=== PATIENT | female | born 1975 | race African-American/Black ===

== ENCOUNTER → 2016-09-04 | Outpatient (CLI) | payer MEDICARE, OTHER ==
[2016-09-04 15:10] VITALS: BP 141/87; PULSE 91; RESP 16; TEMP 98.6; BMI 56.6
[2016-09-04 16:03] LABS: Anisocytosis Slight; CH 28.3; CHCM 30.9; HCT 37.7 % (34.0-46.0); HDW 2.54; HGB 11.4 gm/dL (11.4-16.0); Hypochromasia Slight; MCH 27.9 pg (25.0-35.0); MCHC 30.3 g/dL (31.0-37.0); Mean Platelet Volume 7.8; RDW 16.1 % (11.5-15.5); WBC 7.9 k/uL (3.8-10.6)
[2016-09-04 16:21] LABS: ALT 20 U/L (9-52); AST 15 U/L (14-36); Alkaline Phosphatase 84 U/L (38-126); Anion Gap 9 mmol/L; Blood Urea Nitrogen 11 mg/dL (7-17); Calcium 8.6 mg/dL (8.4-10.2); Carbon Dioxide 29 mmol/L (22-30); Chloride 103 mmol/L (98-107); Cholesterol 136 mg/dL (<200); Glucose 101 mg/dL (74-99); HDL Cholesterol 68 mg/dL (40-60); Iron 36 ug/dL (37-170); Magnesium 1.8 mg/dL (1.6-2.3); Non-African American GFR(MDRD) >60 (>60 ml/min/1.73 sqM); Phosphorous 3.9 mg/dL (2.5-4.5); Potassium 4.3 mmol/L (3.5-5.1); Sodium 141 mmol/L (137-145); Total Bilirubin 0.5 mg/dL (0.2-1.3); Total Protein 6.6 g/dL (6.3-8.2); Triglycerides 81 mg/dL (<150)
[2016-09-04 16:30] LABS: % Iron Saturation 9.6 % (20-50); Prealbumin 15 mg/dL (18-36); Total Iron Binding Capacity 376 ug/dL (265-497)
[2016-09-04 17:23] LABS: Vitamin B12 458 pg/mL (239-931)
[2016-09-04 18:31] LABS: Hemoglobin A1C 5.8 % (4.2-6.1)
[2016-09-07 14:26] LABS: Selenium 143 mcg/L (63-160)
--- NOTE | 2016-10-24 12:26 | P.PN ---
Progress Note - Text DATE OF SERVICE: 09/04/2016 CHIEF COMPLAINT: Bariatric assessment. HISTORY OF PRESENT ILLNESS: Zayra Alcantara is a 41-year-old female with previous history of Hal-en-Y gastric bypass performed at an outside institution in 2008. She is now almost 8 years out. She reports at that time her highest weight was 368 pounds for her 5 foot 7-1/2 frame. Her ideal body weight is 158 pounds. Today she experienced complete weight regain and now 366 pounds. She reports exposure to exogenous estrogen which has caused most of her weight gain. Body mass index is now 57.5. She is 208 pounds overweight. Separately she comes in with having overshot her initial weight up to at least 372 pounds. She has been placed on medication regarding diabetes and also reports a 6 pound weight loss as a result. She comes in complaining of bilateral knee pain including back pain. She also describes persistent right lower quadrant abdominal pain. She has concerns regarding her right thyroid gland and goiter as well. Given the severity of her abdominal pain, which is now more progressive, she is seeking for surgical solutions. PAST MEDICAL HISTORY: 1. Super morbid obesity. 2. Gastroesophageal reflux disease. 3. Fibromyalgia. 4. Cardiomyopathy. 5. Endometriosis. 6. Severe osteoarthritis bilateral knees. 7. Diabetes type 2. PAST SURGICAL HISTORY: 1. Hal-en-Y gastric bypass. 2. Bilateral carpal tunnel release. 3. Colonoscopy. 4. Tonsillectomy. 5. Adenoidectomy. 6. Heart catheterization. 7. Laparoscopic incisional ventral hernia repair from scar. 8. Laparoscopic cholecystectomy. 9. Total knee replacement. 10. Corrective surgery for right orbital fracture. 11. . MEDICATIONS: 1. Norvasc. 2. Aldactazide. 3. Opana. 4. Sinequan. 5. Tenormin. 6. Ventolin inhaler. ALLERGIES: LATEX and PENICILLIN. SOCIAL HISTORY: Still actively smokes. She also has alcohol use. FAMILY HISTORY: She had just had her son who is now 17 months old. Morbid obesity and diabetes in her family. REVIEW OF SYSTEMS: CONSTITUTIONAL: [place] body weight of 158 pounds for 5 foot 7-1/2 inch frame. Highest weight now reset at 372 pounds. She reported recent 6 pounds weight loss in the last 6 months. She is 208 pounds overweight. ENDOCRINE: She reports thyroid nodularity and potential goiter. Her diabetes type 2 is now restarted. MUSCULOSKELETAL: She reports diffuse lower back pain, including hip pain and knee pain. GASTROINTESTINAL: No reports of dumping syndrome. No diarrhea. RESPIRATORY: Has asthma with obstructive sleep apnea. Also has hypertension. HEMATOLOGIC: History of iron deficiency anemia. NEURO: Has chronic pain. No reports of stroke or seizure disorder. HEENT: Wears glasses. Denies trouble with hearing. CARDIOVASCULAR: No reports of heart attack or chest pain. RESPIRATORY: History of bronchitis. NEURO: No reports of stroke or seizure disorders. PSYCH: Has depression and anxiety. PHYSICAL EXAM: VITAL SIGNS: 98.6, 71, 16, 141/87; 5 feet 7-1/2 inches, 366 pounds. Body mass index of 57.5. ABDOMEN: Protuberant, soft, tender along the right lower quadrant. No diffuse peritonitis. No recurrent palpable incisional hernias. GENERAL: Well-developed female in no acute distress. HEENT: Wears glasses. Extraocular muscles grossly intact. Moist buccal mucosa. NECK: Adenopathy of bilateral tonsils. Tender. No thyromegaly. CHEST: Unlabored respirations. Equal bilateral excursions. CARDIOVASCULAR: Regular rate. MUSCULOSKELETAL: No clubbing, cyanosis, or edema. PSYCH: Appropriate affect. Alert and oriented to person, place, and time. LABS: White count normal at 7.9. Hemoglobin 11.4. MCHC low at 30.3. RDW elevated at 16.1. Evidence of hyperchromasia identified. Hemoglobin A1c of 5.8 down from 5.9. Iron low at 36. Percent iron saturation low 9.6. Prealbumin low at 15. HDL elevated at 16. Vitamin D low at 30. Vitamin D low at 12.8. Parathyroid hormone elevated at 94.2. ASSESSMENT: 1. Morbid obesity due to excess calories. 2. Body mass index of 57.5. 3. History of Hal-en-Y gastric bypass. 4. Weight gain following bariatric procedure. 5. Right thyroid nodularity. 6. Thyroid nodule. 7. New right lower quadrant abdominal pain. 8. History of peritoneal adhesions. 9. Iron deficiency anemia. 10. Inadequate protein intake. 11. Medical noncompliance to bariatric diet. 12. Vitamin D deficiency. 13. Vitamin A deficiency. 14. Secondary hyperparathyroidism secondary to inadequate calcium intake. PLAN: 1. Given severity of abdominal pain and known history of peritoneal adhesions, I recommend diagnostic laparoscopy with laparoscopic lysis of adhesions. 2. Deep venous thrombosis prophylaxis. 3. Antibiotic prophylaxis. 4. Vitamin D supplement 50,000 units weekly. 5. Recommend calcium intake of at least 1500 mg daily. 6. Recommend vitamin A supplement at least 8000 units daily. 7. Prealbumin reflects fairly poor protein intake whereby goal is over 75+ grams daily. 8. To help her with her weight gain I have recommended reinstitution of the bariatric dietary plan including following with bariatric dietitian in the interim. ADDENDUM: Vitamin D supplements 50,000 weekly prescribed. Additional prescription for vitamin A as well as calcium was sent to local pharmacy.
== END | disposition home or self-care (01) ==
LOC: BARWHC3 14:40
PROVIDERS: ATTEND Surgery Plastic and Reconstructive Surgery
DX: Z48.815 Encounter for surgical aftercare following surgery on the digestive system (principal); E66.01 Morbid (severe) obesity due to excess calories; E21.1 Secondary hyperparathyroidism, not elsewhere classified; E89.1 Postprocedural hypoinsulinemia; D50.8 Other iron deficiency anemias; E44.0 Moderate protein-calorie malnutrition; E55.9 Vitamin D deficiency, unspecified; K74.1 Hepatic sclerosis; N19 Unspecified kidney failure; K50.90 Crohn's disease, unspecified, without complications; Z98.84 Bariatric surgery status; Z88.0 Allergy status to penicillin; Z91.030 Bee allergy status; Z91.040 Latex allergy status
CPT/HCPCS: 84255; 84134; 84425; 80061; 80053; 82607; 82728; 83036; 82525; 82746; 83540; 83550; 83735; 84100; 84443; 84590; 84630; 85027; 85610; 85730; 82306; 83970; G0463; 99211

== ENCOUNTER 2016-09-13 09:27 | Day surgery (SDC) | payer MEDICARE, OTHER ==
[2016-09-10 15:53] VITALS: BMI 53.1
--- NOTE | 2016-09-13 07:53 | P.GSHP ---
History of Present Illness H&P Date: 09/13/16 CHIEF COMPLAINT: History of intra-abdominal adhesions HISTORY OF PRESENT ILLNESS: The patient is a 41-year-old female who presents with history of intra-abdominal adhesions from multiple prior surgeries including increasing abdominal pain. She now presents for diagnostic laparoscopy including lysis of adhesions. PAST MEDICAL HISTORY: Please see list. PAST SURGICAL HISTORY: Please see list. MEDICATIONS: Please see list. ALLERGIES: Please see list. SOCIAL HISTORY: No illicit drug use FAMILY HISTORY: No reports of Crohn disease or ulcerative colitis. REVIEW OF ORGAN SYSTEMS: CONSTITUTIONAL: No reports of fevers or chills. GI: Denies any blood in stools or constipation. PHYSICAL EXAM: VITAL SIGNS: Stable GENERAL: Well-developed pleasant and in no acute distress. HEENT: No scleral icterus. Extraocular movements grossly intact. Moist buccal mucosa. NECK: Supple without lymphadenopathy. CHEST: Unlabored respirations. Equal bilateral excursions. CARDIOVASCULAR: Regular rate and rhythm. Distal 2+ pulses. ABDOMEN: Soft, diffuse abdominal tenderness. No peritonitis. MUSCULOSKELETAL: No clubbing, cyanosis, or edema. ASSESSMENT: 1. Diffuse abdominal pain. 2. History of multiple abdominal surgeries. 3. Intra-abdominal adhesions. PLAN: 1. Diagnostic laparoscopy with lysis of adhesions were described in detail including risk of injury to the intestine, need for further surgery, and open technique. 2. DVT prophylaxis. 3. Antibiotic prophylaxis. Past Medical History Past Medical History: Asthma, Chest Pain / Angina, Diabetes Mellitus, GERD/ Reflux, Hypertension, Pneumonia, Thyroid Disorder Additional Past Medical History / Comment(s): endometriosis,migraines, hay fever , palpitations, thyroid nodules, herniated disk, double vision occassionally History of Any Multi-Drug Resistant Organisms: None Reported Past Surgical History: Adenoidectomy, Bariatric Surgery, Section, Cholecystectomy, Heart Catheterization, Joint Replacement, Orthopedic Surgery, Tonsillectomy Additional Past Surgical History / Comment(s): left knee arthroscopy , left ACL , LT TKA, gastric bypass , lymph node removed left side of neck Past Anesthesia/Blood Transfusion Reactions: Previous Problems w/ Anesthesia, Motion Sickness Additional Past Anesthesia/Blood Transfusion Reaction / Comment(s): bad headache and diff breathing in recovery, Past Psychological History: Anxiety, Depression, Panic Disorder Additional Psychological History / Comment(s): Hx of panic attacks Smoking Status: Current every day smoker Past Alcohol Use History: Occasional Additional Past Alcohol Use History / Comment(s): smokes 3 cigarettes since 2000 Past Drug Use History: Marijuana Additional Drug Use History / Comment(s): rare use of marijuana - Past Family History Father Family Medical History: Cancer Medications and Allergies Home Medications Medication Instructions Recorded Confirmed Type amLODIPine [Norvasc] 10 mg PO DAILY 02/09/14 09/10/16 History Oxymorphone HCl [Opana ER] 30 mg PO Q12HR 03/17/15 09/10/16 History Albuterol Inhaler [Ventolin Hfa 1 - 2 puff INHALATION Q6HR PRN 08/17/15 History Inhaler] Atenolol [Tenormin] 25 mg PO DAILY PRN 08/17/15 09/10/16 History Doxepin HCl [SINEquan] 50 mg PO HS 08/17/15 09/10/16 History Spironolactone-Hctz 25-25Mg 1 each PO DAILY 10/23/15 09/10/16 History [Aldactazide 25-25Mg] Progesterone,Micronized 200 mg PO HS 09/10/16 09/10/16 History [Prometrium] metFORMIN HCL [Glucophage] 1,000 mg PO BID 09/10/16 09/10/16 History Allergies Allergy/AdvReac Type Severity Reaction Status Date / Time Latex, Natural Rubber Allergy Rash/Hives Verified 09/04/16 16:56 Penicillins Allergy Anaphylaxis Verified 09/04/16 16:56 venom-honey bee Allergy Anaphylaxis Verified 09/04/16 16:56 [bee venom (honey bee)]
[~2016-09-13 09:27] MED LIST: ACETAMINOPHEN IV (For NPO) 1,000 MG in EMPTY BAG 1 BAG IVPB ONE; ACETAMINOPHEN TAB 500 MG TAB PO ONE; CLINDAMYCIN 900 MG in DEXTROSE 5% IN WATER 50 ML IVPB STA; DEXAMETHASONE SOD PHOSPHATE 10 MG/ML 1 ML VIAL IV ONE; ENOXAPARIN 40 MG/0.4 ML SYRINGE SQ ONE; LACTATED RINGERS 1,000 ML IV SCH; MIDAZOLAM 2 MG/2 ML VIAL IV PRN; ONDANSETRON 4 MG/2 ML VIAL IVP ONE; Pre Op ABX Message 1 EACH MISC MISCELLANE ONE; SCOPOLAMINE 1.5MG/72HR PATCH TRANSDERM ONE
[2016-09-13 10:12] LABS: Glucose,Whole Blood 98 mg/dL (75-99)
[2016-09-13] MEDS ORDERED: LIDOCAINE 1% 20 ML VIAL (10MG/ML) FOR IV START INTRADERMA ONE (10:13)
[2016-09-13] MEDS ORDERED: ROCURONIUM BROMIDE 10 MG/ML 10 ML VIAL IV ONE (10:23)
[2016-09-13] MEDS ORDERED: SUCCINYLCHOLINE CHLORIDE 100 MG/5 ML SYR IV ONE (10:23)
[2016-09-13] MEDS ORDERED: GLYCOPYRROLATE 0.2 MG/ML 2 ML VIAL ONE (10:23)
[2016-09-13] MEDS ORDERED: LIDOCAINE 1% INJ 10MG/ML (20 ML MDV) ONE (10:23)
[2016-09-13] MEDS ORDERED: METOPROLOL TARTRATE 5 MG/5 ML VIAL IVP ONE (10:23)
[2016-09-13] MEDS ORDERED: fentaNYL (PF) 50 MCG/ML 2 ML AMP ONE (10:23)
[2016-09-13] MEDS ORDERED: PROPOFOL 10 MG/ML 20 ML VIAL IV ONE (10:23)
[2016-09-13] MEDS ORDERED: NEOSTIGMINE 1 MG/ML 10 ML VIAL ONE (10:23)
[2016-09-13] MEDS ORDERED: HYDROmorphone (PF) 1 MG/ML ONE (10:23)
[2016-09-13] MEDS ORDERED: MIDAZOLAM 2 MG/2 ML VIAL ONE (10:23)
[2016-09-13] MEDS ORDERED: BUPIVACAIN-EPI 0.25%-1:200,000 30 ML VIAL SQ ONE (11:01)
--- NOTE | 2016-09-13 11:26 | P.OP ---
Date of Procedure: 09/13/16 Preoperative Diagnosis: Postoperative Diagnosis: Procedure(s) Performed: Implants: Indications for Procedure: Operative Findings: Description of Procedure: SURGEON: HIWOT RIDER MD MANAGER INDUSTRIAL: None. PREOPERATIVE DIAGNOSES: 1. Right lower quadrant abdominal pain. 2. History of pelvic and peritoneal adhesions. 3. Chronic pain syndrome. 4. History of gastric bypass. 5. Body mass index 53.2. 6. Morbid obesity. 7. Diabetes type 2, [id number]. POSTOPERATIVE DIAGNOSES: 1. Right lower quadrant abdominal pain. 2. History of pelvic and peritoneal adhesions. 3. Chronic pain syndrome. 4. History of gastric bypass. 5. Body mass index 53.2. 6. Morbid obesity. 7. Diabetes type 2, [id number]. 8. Large right ovarian cyst, 5 cm. 9. Free fluid with peritoneal fluid. PROCEDURES PERFORMED: 1. Diagnostic laparoscopy. 2. Laparoscopic lysis of adhesions of omentum to anterior abdominal wall ANESTHESIA: General with 30 mL 0.25% Marcaine with epinephrine. ESTIMATED BLOOD LOSS: 2 mL. SPECIMENS REMOVED: Cell cytology peritoneal fluid. COMPLICATIONS: None. OPERATIVE FINDINGS: 1. Severe omental adhesions to the abdominal wall of the pelvis. 2. No evidence of small bowel obstruction. 3. Large right ovarian cyst over 5 cm without infarction. 4. Left ovary within normal limits. INDICATIONS: The patient is a 41-year-old female who presents with chronic abdominal pain including prior history of severe intra-abdominal adhesions of the abdomen and pelvis. She also has history of gastric bypass. Given the severity of her symptoms, she elected for surgical intervention. Benefits and risks, including possibility of open technique were described at length. Informed consent was obtained. DESCRIPTION OF PROCEDURE: Patient was brought to the operating room, laid in supine position. After general induction, the abdomen was prepped and draped in standard sterile fashion. Prior to incision, a timeout protocol was confirmed with surgical team regarding patient's name including procedure to be performed. Preoperative medications including antibiotics were given. Additionally, bilateral SCDs including heparin 5000 units was administered. A 5 mm laparoscopic trocar entry performed of the left upper quadrant after anesthetizing the skin with local anesthetic. Diagnostic laparoscopy demonstrated moderate adhesions of the lower pelvis. No gross small bowel dilatation was encountered. Primarily omental Two 5-mm trochars were placed along the left lateral abdominal wall. The patient was placed in Trendelenburg position with the right side up. Greater omental dhesions along her previous mesh was identified and sharply lysed using Sonicision. Attention was brought to the right lower pelvis whereby the right ovary had a 5 cm simple cyst. The left ovary was unremarkable. The uterus was moderate in size. The bilateral groins did not demonstrate any large incarcerated hernias. A weak bilateral groin floor was confirmed. Clear fluid was found in the pelvis and irrigated as well as aspirated for cell cytology with her history of ovarian cyst. No enterotomies occurred. No evidence of bowel obstruction or small bowel dilatation was found. Final inspection of the abdomen demonstrated adequate hemostasis including no enterotomies. All instruments and pneumoperitoneum were evacuated from the abdominal cavity. A total of 30 mL 0.25% Marcaine with epinephrine was infiltrated in all wounds for postop analgesia. Dermabond was applied to the skin after reapproximating the incisions with 4-0 Monocryl as described. At the end of the procedure, needle, sponge, and instrument count was verified correct by watch technician. The patient had tolerated the procedure well, was taken to the postanesthesia care unit in stable condition. Intraoperative abdominal films were described and discussed with her family who were overall pleased with her level of care. Plan - Discharge Summary Discharge Medication List amLODIPine [Norvasc] 10 mg PO DAILY 02/09/14 [History] Oxymorphone HCl [Opana ER] 30 mg PO Q12HR 03/17/15 [History] Albuterol Inhaler [Ventolin Hfa Inhaler] 1 - 2 puff INHALATION Q6HR PRN [History] Atenolol [Tenormin] 25 mg PO DAILY PRN 08/17/15 [History] Doxepin HCl [SINEquan] 50 mg PO HS 08/17/15 [History] Spironolactone-Hctz 25-25Mg [Aldactazide 25-25Mg] 1 each PO DAILY 10/23/15 [ History] Progesterone,Micronized [Prometrium] 200 mg PO HS 09/10/16 [History] metFORMIN HCL [Glucophage] 1,000 mg PO BID 09/10/16 [History] Follow up Appointment(s)/Referral(s): Hiwot Rider MD [STAFF PHYSICIAN] - 09/26/16 (Bariatric center) Patient Instructions/Handouts: *Surgery [facility] - Scopalamine Patch Instructions, Ovarian Cyst (GEN) Activity/Diet/Wound Care/Special Instructions: May shower. No bath tub soaks. Discharge Disposition: HOME SELF-CARE
[2016-09-13 11:46] VITALS: TEMP 98
[2016-09-13] MEDS ORDERED: HYDROcodone/APAP 5-325MG 1 EACH TAB PO PRN (11:47)
[2016-09-13] MEDS ORDERED: NALOXONE 0.4 MG/ML 1 ML VIAL IV PRN (11:47)
[2016-09-13] MEDS: HYDROmorphone 1 MG/ML 1 ML SYRINGE IVP PRN ×5 (11:50→12:33)
[2016-09-13] MEDS ORDERED: diphenhydrAMINE 50 MG/ML 1 ML VIAL IVP ONE (12:02)
[2016-09-13 13:19] VITALS: RESP 18
[2016-09-13] MEDS ORDERED: oxyCODONE-APAP 5-325MG 1 EACH TAB PO STA ×2 (14:23→14:42)
[2016-09-13 14:34] VITALS: BP 134/85; PULSE 93
== END 2016-09-13 15:38 | disposition home or self-care (01) ==
LOC: OR 09:27
PROVIDERS: ATTEND Surgery Plastic and Reconstructive Surgery
DX: K66.0 Peritoneal adhesions (postprocedural) (postinfection) (principal); N83.201 Unspecified ovarian cyst, right side; Z98.84 Bariatric surgery status; J45.909 Unspecified asthma, uncomplicated; E11.9 Type 2 diabetes mellitus without complications; Z79.84 Long term (current) use of oral hypoglycemic drugs; I10 Essential (primary) hypertension; E66.9 Obesity, unspecified; Z68.43 Body mass index [BMI] 50.0-59.9, adult; F41.9 Anxiety disorder, unspecified; F32.9 Major depressive disorder, single episode, unspecified; F41.0 Panic disorder [episodic paroxysmal anxiety]; F17.210 Nicotine dependence, cigarettes, uncomplicated; Z79.891 Long term (current) use of opiate analgesic; Z79.899 Other long term (current) drug therapy; Z88.0 Allergy status to penicillin; Z91.030 Bee allergy status; Z91.040 Latex allergy status
CPT/HCPCS: 93005; 81025; 88108; 88305; 49329; J2250; J1200; J1100; J2710; J2405; J2001; J1650; J3010; J1170; J0131; J0330; J2704

== ENCOUNTER → 2016-09-26 | Outpatient (CLI) | payer MEDICARE, OTHER ==
--- NOTE | 2016-09-26 16:00 | US ---
EXAMINATION TYPE: US pelvis complete transvag DATE OF EXAM: 09/26/2016 COMPARISON: CT 2016 CLINICAL HISTORY: Prev Rt Ovarian Cyst, and Pain R10.2 N83.20. rt ovarian cyst, persisting pelvic kaila n TECHNIQUE: Transvaginal (TV) and Transabdominal (TA) EXAM MEASUREMENTS: Uterus: 13.1 x 5.8 x 6.5 cm Endometrial Stripe: 1.0 cm Right Ovary: 5.3 x 4.2 x 5.8 cm Left Ovary: 2.6 x 1.8 x 2.8 cm 1. Uterus: Anteverted bulky uterine body, larger in size 2. Endometrium: wnl 3. Right Ovary: seen with a 4.0 x 3.7 x 3.6cm simple cyst; good color flow seen within the ovarian t issue, no u/s evidence of torsion 4. Left Ovary: wnl 5. Bilateral Adnexa: wnl 6. Posterior cul-de-sac: no free fluid seen Results called to Dr Kumar at the time of the exam. IMPRESSION: 1. Bulky uterus without discrete mass. 2 simple cyst right ovary. Normal blood flow.
== END | disposition home or self-care (01) ==
LOC: RADUSWWP 15:11
PROVIDERS: ATTEND Obstetrics & Gynecology
DX: N83.201 Unspecified ovarian cyst, right side (principal); R10.2 Pelvic and perineal pain
CPT/HCPCS: 76830; 76856; 93976

== ENCOUNTER → 2016-09-26 | Outpatient (CLI) | payer MEDICARE, OTHER ==
[2016-09-26 12:13] VITALS: BP 131/89; PULSE 92; RESP 14; TEMP 98.7; BMI 55.6
--- NOTE | 2016-10-26 19:41 | P.PN ---
Progress Note - Text DATE OF SERVICE: 09/26/2016 CHIEF COMPLAINT: History of chronic abdominal pain HISTORY OF PRESENT ILLNESS: Zayra Alcantara is a 41-year-old female with previous history of Hal-en-Y gastric bypass performed at an outside institution in 2008. She is now almost 8 years out. She reported pelvic pain particularly of the right lower abdomen. She underwent laparoscopic lysis of adhesions with findings of a large right ovarian cyst of 5 cm. Now she presents for further evaluation and management. She reports chronic pain all over from fibromyalgia. Her highest weight is 372 pounds for her 5 foot 7-/2 frame. Her ideal body weight is 158 pounds. Today she is 365 pounds. She has lost 1 pounds in 3 weeks. Body mass index is down from 57.5 to 56.5. She is 207 pounds overweight. PHYSICAL EXAM: VITAL SIGNS: 5 feet 7-1/2 inches, 365 pounds. Body mass index of 56.5. Vital Signs Temp 98.7 F 09/26/16 12:09 Pulse 92 09/26/16 12:09 Resp 14 09/26/16 12:09 BP 131/89 09/26/16 12:09 Pulse Ox ABDOMEN: Protuberant, soft. No diffuse peritonitis. No recurrent palpable incisional hernias. GENERAL: Well-developed female in no acute distress. HEENT: Wears glasses. Extraocular muscles grossly intact. Moist buccal mucosa. NECK: Has thyromegaly. No lymphadenopathy. CHEST: Unlabored respirations. Equal bilateral excursions. CARDIOVASCULAR: Regular rate. MUSCULOSKELETAL: No clubbing, cyanosis, or edema. NEURO: No focal or lateral and signs. Cranial nerves 2-12 grossly within normal limits. PSYCH: Appropriate affect. Alert and oriented to person, place, and time. ASSESSMENT: 1. Morbid obesity due to excess calories. 2. Body mass index of 57.5 to 56.5 3. History of Hal-en-Y gastric bypass. 4. History of peritoneal adhesions. 5. Iron deficiency anemia. 6. Inadequate protein intake. 7. Medical noncompliance to bariatric diet. 8. Vitamin D deficiency. 9. Vitamin A deficiency. 10. Secondary hyperparathyroidism secondary to inadequate calcium intake. 11. Symptomatic right ovarian cyst. PLAN: 1. Recommend follow-up with her circular tank cooper as she reports moderate symptomatology from a right ovarian cyst. 2. Recommend correction of nutritional deficiencies including vitamin D deficiency and inadequate protein intake. 3. Her other concerns includes her thyroid which would benefit from repeat imaging.
== END | disposition home or self-care (01) ==
LOC: BARWHC3 11:23
PROVIDERS: ATTEND Surgery Plastic and Reconstructive Surgery
DX: E66.01 Morbid (severe) obesity due to excess calories (principal); D50.9 Iron deficiency anemia, unspecified; E46 Unspecified protein-calorie malnutrition; E55.9 Vitamin D deficiency, unspecified; E50.9 Vitamin A deficiency, unspecified; N83.201 Unspecified ovarian cyst, right side; E21.1 Secondary hyperparathyroidism, not elsewhere classified; Z68.43 Body mass index [BMI] 50.0-59.9, adult; Z98.84 Bariatric surgery status; Z87.19 Personal history of other diseases of the digestive system; Z91.11 Patient's noncompliance with dietary regimen
CPT/HCPCS: 93976; 76856; 76830; G0463; 99211

== ENCOUNTER 2016-09-30 09:15 | Day surgery (SDC) | payer MEDICARE, OTHER ==
[2016-09-27 12:13] VITALS: BMI 55.6
--- NOTE | 2016-09-30 07:49 | P.GSHP ---
History of Present Illness H&P Date: 09/30/16 CHIEF COMPLAINT: GERD HISTORY OF PRESENT ILLNESS: The patient is a 41-year-old male who presents reports gastroesophageal reflux disease. Upper endoscopy was offered for further evaluation and management. PAST MEDICAL HISTORY: Please see list. PAST SURGICAL HISTORY: Please see list. MEDICATIONS: Please see list. ALLERGIES: Please see list. SOCIAL HISTORY: No illicit drug use FAMILY HISTORY: No reports of Crohn disease or ulcerative colitis. REVIEW OF ORGAN SYSTEMS: CONSTITUTIONAL: No reports of fevers or chills. GI: Denies any blood in stools or constipation. PHYSICAL EXAM: VITAL SIGNS: Stable GENERAL: Well-developed and pleasant in no acute distress. HEENT: No scleral icterus. Extraocular movements grossly intact. Moist buccal mucosa. NECK: Supple without lymphadenopathy. CHEST: Unlabored respirations. Equal bilateral excursions. CARDIOVASCULAR: Regular rate and rhythm. Distal 2+ pulses. ABDOMEN: Soft, nondistended. MUSCULOSKELETAL: No clubbing, cyanosis, or edema. ASSESSMENT: 1. Gastroesophageal reflux disease PLAN: 1. Recommend proceeding with an upper endoscopy Past Medical History Past Medical History: Asthma, Chest Pain / Angina, Diabetes Mellitus, Fibromyalgia, GERD/Reflux, Hypertension, Pneumonia, Thyroid Disorder Additional Past Medical History / Comment(s): endometriosis,migraines, hay fever , palpitations, thyroid nodules, herniated disk, double vision occassionally. CYST ON OVARY. STATES TAKES TENORMIN FOR OCCASIONAL HEART PALPITATIONS History of Any Multi-Drug Resistant Organisms: None Reported Past Surgical History: Adenoidectomy, Bariatric Surgery, Section, Cholecystectomy, Heart Catheterization, Joint Replacement, Orthopedic Surgery, Tonsillectomy Additional Past Surgical History / Comment(s): left knee arthroscopy , left ACL , LT TKA, gastric bypass, lymph node removed left side of neck. LAPAROTOMY FOR ENDOMETRIOSIS Past Anesthesia/Blood Transfusion Reactions: Previous Problems w/ Anesthesia, Motion Sickness Additional Past Anesthesia/Blood Transfusion Reaction / Comment(s): bad headache and diff breathing in recovery, MUSCLE PAIN POST OP Past Psychological History: Anxiety, Depression, Panic Disorder Additional Psychological History / Comment(s): Hx of panic attacks Smoking Status: Current every day smoker Past Alcohol Use History: Occasional Additional Past Alcohol Use History / Comment(s): smokes 3 cigarettes since 2000 , Past Drug Use History: Marijuana Additional Drug Use History / Comment(s): rare use of marijuana EDIBLE, INSTRUCTED TO HOLD 24 HR PRIOR TO PROCEDURE - Past Family History Father Family Medical History: Cancer Medications and Allergies Home Medications Medication Instructions Recorded Confirmed Type amLODIPine [Norvasc] 10 mg PO DAILY 02/09/14 09/27/16 History Oxymorphone HCl [Opana ER] 30 mg PO Q12HR 03/17/15 09/27/16 History Albuterol Inhaler [Ventolin Hfa 1 - 2 puff INHALATION Q6HR PRN 08/17/15 History Inhaler] Atenolol [Tenormin] 25 mg PO DAILY PRN 08/17/15 09/27/16 History Doxepin HCl [SINEquan] 50 mg PO HS 08/17/15 09/27/16 History Spironolactone-Hctz 25-25Mg 1 each PO DAILY 10/23/15 09/27/16 History [Aldactazide 25-25Mg] Progesterone,Micronized 200 mg PO HS 09/10/16 09/27/16 History [Prometrium] Exenatide Microspheres [Bydureon 2 mg SQ TH 09/27/16 09/27/16 History Pen] Allergies Allergy/AdvReac Type Severity Reaction Status Date / Time Latex, Natural Rubber Allergy Rash/Hives Verified 09/27/16 12:04 Penicillins Allergy Anaphylaxis Verified 09/27/16 12:04 venom-honey bee Allergy Anaphylaxis Verified 09/27/16 12:04 [bee venom (honey bee)]
[~2016-09-30 09:15] MED LIST changes: -ACETAMINOPHEN IV (For NPO) 1,000 MG in EMPTY BAG 1 BAG IVPB ONE; -ACETAMINOPHEN TAB 500 MG TAB PO ONE; -CLINDAMYCIN 900 MG in DEXTROSE 5% IN WATER 50 ML IVPB STA; -DEXAMETHASONE SOD PHOSPHATE 10 MG/ML 1 ML VIAL IV ONE; -ENOXAPARIN 40 MG/0.4 ML SYRINGE SQ ONE; +LIDOCAINE 1% 20 ML VIAL (10MG/ML) FOR IV START INTRADERMA PRN; -MIDAZOLAM 2 MG/2 ML VIAL IV PRN; -ONDANSETRON 4 MG/2 ML VIAL IVP ONE; -Pre Op ABX Message 1 EACH MISC MISCELLANE ONE; -SCOPOLAMINE 1.5MG/72HR PATCH TRANSDERM ONE
[2016-09-30 09:33] VITALS: RESP 16; TEMP 97.6
[2016-09-30 09:33] LABS: Glucose,Whole Blood 93 mg/dL (75-99)
[2016-09-30] MEDS ORDERED: PROPOFOL 10 MG/ML 20 ML VIAL IV ONE (09:54)
[2016-09-30] MEDS ORDERED: LIDOCAINE 1% INJ 10MG/ML (20 ML MDV) ONE (09:54)
--- NOTE | 2016-09-30 10:24 | P.PCN ---
Date of Procedure: 09/30/16 Preoperative Diagnosis: Postoperative Diagnosis: Procedure(s) Performed: Implants: Indications for Procedure: Operative Findings: Description of Procedure: PREOPERATIVE DIAGNOSIS: Dysphagia. s/p Hal-en-y gastric bypass. Nausea with vomiting. Morbid obesity. Diabetes type 2. POSTOPERATIVE DIAGNOSIS: Dysphagia. s/p Hal-en-y gastric bypass. Nausea with vomiting. Morbid obesity. Diabetes type 2. 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 OPERATION: Esophagogastrojejunoscopy with balloon dilatation from 15 to 20 mm. SURGEON: Hiwot Rider MD ANESTHESIA: MAC. INDICATIONS: The patient is a 41-year-old female who presents with a history of dysphagia, gastric bypass including nausea and vomiting. Benefits and risks of the procedure were described. Informed consent was obtained. DESCRIPTION: The patient was brought into the endoscopy suite and laid in the left lateral decubitus position. After a timeout was confirmed, the procedure was initiated. An Olympus gastroscope was passed along the posterior oropharynx down to the distal esophagus where the squamocolumnar junction was unremarkable. The gastric pouch was entered. A gastrojejunal stricture of 15 mm was found as the adult gastroscope was 9.5 mm in size. A [employer] balloon dilator was placed through the scope. Final insufflation up to 20 mm was performed with a total of 2 minutes. The scope was advanced up to 60 cm from the incisors into the Hal limb. The mucosa of the gastrojejunal anastomosis was intact. No gastrojejunal marginal ulcer was encountered. No full-thickness injury was encountered. The GI tract was desufflated. The patient tolerated the procedure well. FINDINGS: Squamocolumnar junction unremarkable at 40 cm. Stricture of approximately 15 mm encountered. No acute or chronic gastrojejunal ulceration encountered. Successful balloon dilatation to 20 mm. Anastomosis at 48 cm from the incisors. Gastric pouch 8 cm. RECOMMENDATIONS: Upper endoscopy as needed. Plan - Discharge Summary New Discharge Prescriptions: No Action amLODIPine [Norvasc] 10 mg PO DAILY Oxymorphone HCl [Opana ER] 30 mg PO Q12HR Albuterol Inhaler [Ventolin Hfa Inhaler] 1 - 2 puff INHALATION Q6HR PRN PRN Reason: asthma Doxepin HCl [SINEquan] 50 mg PO HS Atenolol [Tenormin] 25 mg PO DAILY PRN PRN Reason: Dyspnea Spironolactone-Hctz 25-25Mg [Aldactazide 25-25Mg] 1 each PO DAILY Progesterone,Micronized [Prometrium] 200 mg PO HS Exenatide Microspheres [Bydureon Pen] 2 mg SQ TH Exenatide Microspheres [Bydureon] 2 mg SQ Q7DAYS Discharge Medication List amLODIPine [Norvasc] 10 mg PO DAILY 02/09/14 [History] Oxymorphone HCl [Opana ER] 30 mg PO Q12HR 03/17/15 [History] Albuterol Inhaler [Ventolin Hfa Inhaler] 1 - 2 puff INHALATION Q6HR PRN [History] Atenolol [Tenormin] 25 mg PO DAILY PRN 08/17/15 [History] Doxepin HCl [SINEquan] 50 mg PO HS 08/17/15 [History] Spironolactone-Hctz 25-25Mg [Aldactazide 25-25Mg] 1 each PO DAILY 10/23/15 [ History] Progesterone,Micronized [Prometrium] 200 mg PO HS 09/10/16 [History] Exenatide Microspheres [Bydureon Pen] 2 mg SQ TH 09/27/16 [History] Exenatide Microspheres [Bydureon] 2 mg SQ Q7DAYS 09/30/16 [History] Follow up Appointment(s)/Referral(s): Hiwot Rider MD [STAFF PHYSICIAN] - 1 Week Patient Instructions/Handouts: Esophageal Dilation (DC) Activity/Diet/Wound Care/Special Instructions: Liquid diet today. Regular food tomorrow. Discharge Disposition: HOME SELF-CARE
[2016-09-30 10:31] VITALS: BP 140/89; PULSE 92
== END 2016-09-30 10:46 | disposition home or self-care (01) ==
LOC: ORWHC2ENDO 09:15
PROVIDERS: ATTEND Surgery Plastic and Reconstructive Surgery
DX: K31.89 Other diseases of stomach and duodenum (principal); Z98.84 Bariatric surgery status; E66.01 Morbid (severe) obesity due to excess calories; E11.9 Type 2 diabetes mellitus without complications; K21.9 Gastro-esophageal reflux disease without esophagitis; M79.7 Fibromyalgia; I10 Essential (primary) hypertension; E07.9 Disorder of thyroid, unspecified; F41.9 Anxiety disorder, unspecified; F32.9 Major depressive disorder, single episode, unspecified; F41.0 Panic disorder [episodic paroxysmal anxiety]; J44.9 Chronic obstructive pulmonary disease, unspecified; F17.210 Nicotine dependence, cigarettes, uncomplicated; Z79.891 Long term (current) use of opiate analgesic; Z79.899 Other long term (current) drug therapy; Z88.0 Allergy status to penicillin; Z91.030 Bee allergy status; Z91.040 Latex allergy status
CPT/HCPCS: 81025; 43249; J2001; J2704; C1726

== ENCOUNTER → 2016-11-08 | Outpatient (CLI) | payer MEDICARE, OTHER ==
--- NOTE | 2016-11-08 11:05 | US ---
EXAMINATION TYPE: US thyroid st tissue head/neck DATE OF EXAM: 11/08/2016 COMPARISON: 11/03/2015 CLINICAL HISTORY: 41-year-old female R22.0 swelling mass. History of thyroid nodule, dysphagia . TECHNIQUE: Multiple sonographic images of the thyroid gland are obtained. FINDINGS: GLAND SIZE: Right Lobe: 5.0 x 2.1 x 2.4 cm Overall Parenchyma: heterogenous Left Lobe: 4.5 x 1.4 x 2.0 cm Overall Parenchyma: homogeneous Isthmus Thickness: 0.2 cm NODULES RIGHT: # of nodules measured on right: 1 1. 2.6 X 1.8 x 2.1 cm heterogeneous solid nodule at the mid/lower pole with well-defined margins; s mall internal cystic components are present. . This nodule is wider than tall and shows intranodular vascularity. Prior size: 2.5 x 1.7 x 2.2cm, not significantly changed. LEFT: # of nodules measured on left: 0 ISTHMUS: # of nodules measured in the isthmus: 0 Bilateral neck scanned, multiple lymph nodes left neck with largest measuring 1.1 cm short axis. IMPRESSION: 1. Essentially stable large 2.6 cm solid nodule in the right lobe. 2. Prominent lymph nodes along the left side of the neck measuring up to 1.1 cm. These may be reactiv e/post inflammatory and can be followed clinically. If there is progressive enlargement, the area can be reimaged and tissue sampling can be considered.
--- NOTE | 2016-11-08 11:45 | FL ---
EXAMINATION TYPE: FL UGI air w esophagus DATE OF EXAM: 11/08/2016 COMPARISON: NONE HISTORY: Dysphasia TECHNIQUE: A single contrast UGI study is performed. FINDINGS: Hand Sizer image of the abdomen shows no gross abnormality. The esophagus shows normal motility and emptying into the stomach. No evidence of hiatal hernia or s tricture noted. Postsurgical change compatible with Hal-en-Y noted. Pleura review demonstrates surgical clips and no nspecific gas pattern. There is no evidence of gastroesophageal reflux. Delayed imaging demonstrates no evidence to suggest obstruction. The duodenal bulb, sweep, and proximal small bowel loops are unremarkable. Imaging machine malfunctio n. Reduce the number of spot images obtained. IMPRESSION: 1. Postsurgical change with no acute process.
== END | disposition home or self-care (01) ==
LOC: RADUSWWP 08:27
PROVIDERS: ATTEND Surgery Plastic and Reconstructive Surgery
DX: E04.1 Nontoxic single thyroid nodule (principal); R13.10 Dysphagia, unspecified; R59.0 Localized enlarged lymph nodes
CPT/HCPCS: 74246; 76536

== ENCOUNTER → 2017-01-06 | Outpatient (CLI) | payer MEDICARE, OTHER ==
[2017-01-06 17:54] LABS: Anisocytosis Slight; Basophils # (A) 0.1 k/uL (0-0.2); Basophils % (A) 1 %; CH 28.6; CHCM 32.2; Eosinophils # (A) 0.3 k/uL (0-0.7); Eosinophils % (A) 3 %; HCT 37.6 % (34.0-46.0); HDW 2.69; HGB 11.9 gm/dL (11.4-16.0); Luc # (Auto) 0.17; Luc % (Auto) 2; Lymphocytes # (A) 2.3 k/uL (1.0-4.8); Lymphocytes % (A) 27 %; MCH 28.4 pg (25.0-35.0); MCHC 31.7 g/dL (31.0-37.0); MCV 89.6 fL (80.0-100.0); Mean Platelet Volume 8.1; Monocytes # (A) 0.3 k/uL (0-1.0); Monocytes % (A) 4 %; Neutrophils # (A) 5.5 k/uL (1.3-7.7); Neutrophils % (A) 63 %; RDW 16.7 % (11.5-15.5); WBC 8.6 k/uL (3.8-10.6); WBC (Perox) 8.71
[2017-01-06 17:57] LABS: Ionized Calcium 4.7 mg/dL (4.5-5.3)
[2017-01-06 18:00] LABS: Appearance,Urine Clear (Clear); Bacteria,Urine Rare /hpf; Bilirubin,Urine Negative (Negative); Glucose,Urine (UA) Negative (Negative); Ketones,Urine Negative (Negative); Leukocyte Esterase,Urine Negative (Negative); Mucus,Urine Occasional /hpf; Nitrite,Urine Negative (Negative); Particle Count 4450; Protein,Urine Trace (Negative); RBC,Urine <1 /hpf (0-5); Specific Gravity,Urine 1.024 (1.001-1.035); Squamous Epithelial Cell,Urine 1 /hpf (0-4); UA Billing (MACRO vs. MICRO) MICRO; WBC,Urine 1 /hpf (0-5)
[2017-01-06 18:07] LABS: ALT 27 U/L (9-52); AST 18 U/L (14-36); Alkaline Phosphatase 119 U/L (38-126); Anion Gap 10 mmol/L; Blood Urea Nitrogen 10 mg/dL (7-17); C Reactive Protein 10.4 mg/L (<10.0); Calcium 8.5 mg/dL (8.4-10.2); Carbon Dioxide 26 mmol/L (22-30); Chloride 103 mmol/L (98-107); Glucose 93 mg/dL (74-99); Non-African American GFR(MDRD) >60 (>60 ml/min/1.73 sqM); Potassium 3.9 mmol/L (3.5-5.1); Rheumatoid Factor, Qnt <9 IU/mL (<12); Sodium 139 mmol/L (137-145); Total Bilirubin 0.5 mg/dL (0.2-1.3); Total Protein 7.1 g/dL (6.3-8.2)
[2017-01-06 19:20] LABS: Erythrocyte Sedimentation Rate 28 mm/hr (0-20)
[2017-01-07 18:42] LABS: Urine Creatinine 258.4 mg/dL
[2017-01-08 18:48] LABS: ANA w/Reflex to Titer NEGATIVE (NEGATIVE); Cyclic Citrull Pep IgG Unit <0.5 U/mL; Cyclic Citrullinated Pep IgG NEGATIVE (NEGATIVE)
== END | disposition home or self-care (01) ==
LOC: LABWHC1 17:14
PROVIDERS: ATTEND Internal Medicine
DX: M79.7 Fibromyalgia (principal); E11.9 Type 2 diabetes mellitus without complications; I10 Essential (primary) hypertension; E55.9 Vitamin D deficiency, unspecified; E21.3 Hyperparathyroidism, unspecified
CPT/HCPCS: 36415; 80053; 81001; 82043; 82306; 82330; 82570; 83970; 85025; 85652; 86038; 86140; 86200; 86431

== ENCOUNTER → 2017-06-16 | Outpatient (CLI) | payer MEDICARE, OTHER | END | disposition home or self-care (01) | LOC: PTMAIN 16:02 | PROVIDERS: ATTEND Otolaryngology | DX: K21.9 Gastro-esophageal reflux disease without esophagitis (principal) | CPT/HCPCS: 31579 ==

== ENCOUNTER → 2017-06-18 | Outpatient (CLI) | payer MEDICARE, OTHER ==
[2017-06-18 16:14] VITALS: BP 137/71; PULSE 91; RESP 16; TEMP 98.5; BMI 58.3
--- NOTE | 2017-08-21 14:37 | P.PN ---
Subjective Progress Note Date: 06/18/17 DATE OF SERVICE: 06/18/2017 CHIEF COMPLAINT: Follow gastric bypass HISTORY OF PRESENT ILLNESS: Zayra Alcantara is a 42-year-old female with previous history of Hal-en-Y gastric bypass performed at an outside institution in 2008. Prior to her surgery 9 years ago, she had weighed 368 pounds for her 5 foot 7-1/2 frame. Her ideal body weight is 158 pounds. Her body mass index was 56.8. Today she weighs 377 pounds. She has regained over 100+ pounds since her weight loss. Separately, she has gained 12 pounds in the last 8 months. She reports chronic troubles with swallowing. She is also concerned about thyroid nodule. She had completed a full course urinalysis demonstrating foamcore nodules from gas esophageal reflux disease. She had completed a manometry also confirming troubles with swallowing. She has developed severe osteoarthritis of the lower back where she is exposed to steroids since her weight gain. 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 She complains of intermittent epigastric abdominal pain as well. PAST MEDICAL HISTORY: 1. Super morbid obesity, BMI 58.3. 2. Gastroesophageal reflux disease. 3. Fibromyalgia. 4. Cardiomyopathy. 5. Endometriosis. 6. Severe osteoarthritis bilateral knees. 7. Diabetes type 2. 8. Thyroid nodule 9. Dysphagia 10. Asthma PAST SURGICAL HISTORY: 1. Hal-en-Y gastric bypass. 2. Bilateral carpal tunnel release. 3. Colonoscopy. 4. Tonsillectomy. 5. Adenoidectomy. 6. Heart catheterization. 7. Laparoscopic incisional ventral hernia repair from scar. 8. Laparoscopic cholecystectomy. 9. Total knee replacement. 10. Corrective surgery for right orbital fracture. 11. . 12. Upper endoscopy MEDICATIONS: 1. Norvasc. 2. Aldactazide. 3. Opana. 4. Sinequan. 5. Tenormin. 6. Ventolin inhaler. ALLERGIES: LATEX and PENICILLIN. SOCIAL HISTORY: Still actively smokes. She also has alcohol use. FAMILY HISTORY: She had just had her son who is now 17 months old. Morbid obesity and diabetes in her family. REVIEW OF SYSTEMS: CONSTITUTIONAL: [place] body weight of 158 pounds for 5 foot 7-1/2 inch frame. Prior to her surgery 9 years ago, she had weighed 368 pounds for her 5 foot 7-1/2 frame. Her ideal body weight is 158 pounds. Her body mass index was 56.8. Today she weighs 377 pounds. She has regained over 100+ pounds since her weight loss. Separately, she has gained 12 pounds in the last 8 months. She is 214 pounds overweight. ENDOCRINE: She reports thyroid nodularity and potential goiter. Her diabetes type 2 is now restarted. MUSCULOSKELETAL: She reports diffuse lower back pain, including hip pain and knee pain. GASTROINTESTINAL: No reports of dumping syndrome. No diarrhea. RESPIRATORY: Has asthma with obstructive sleep apnea. Also has hypertension. HEMATOLOGIC: History of iron deficiency anemia. NEURO: Has chronic pain. No reports of stroke or seizure disorder. HEENT: Wears glasses. Denies trouble with hearing. CARDIOVASCULAR: No reports of heart attack or chest pain. RESPIRATORY: History of bronchitis. NEURO: No reports of stroke or seizure disorders. PSYCH: Has depression and anxiety. Has fibromyalgia. PHYSICAL EXAM: VITAL SIGNS: 5 feet 7-1/2 inches, 377 pounds. Body mass index of 58.3. Vital Signs Temp 98.5 F 06/18/17 17:03 Pulse 91 06/18/17 17:03 Resp 16 06/18/17 17:03 BP 137/71 06/18/17 17:03 Pulse Ox ABDOMEN: Protuberant, soft, tender along the epigastrium. No recurrent palpable incisional hernias. GENERAL: Well-developed female in no acute distress. HEENT: Wears glasses. Extraocular muscles grossly intact. Moist buccal mucosa. NECK: Discrete right thyroid nodule. No lymphadenopathy. CHEST: Unlabored respirations. Equal bilateral excursions. CARDIOVASCULAR: Regular rate. Regular rhythm. 2+ radial pulses. MUSCULOSKELETAL: No clubbing, cyanosis, or edema. PSYCH: Appropriate affect. Alert and oriented to person, place, and time. NEURO: No focal or lateralizing signs. Cranial nerves II-12 grossly intact. SKIN: Well perfused. Good skin turgor. STUDIES: Video analysis of the vocal cords demonstrate nodules Manometry demonstrated upper esophageal hypertensive sphincter EGD: Demonstrates large sliding hiatal hernia including complications of gastric pouch ASSESSMENT: 1. Morbid obesity due to excess calories. 2. Body mass index of 58.3. 3. History of Hal-en-Y gastric bypass. 4. Weight gain following bariatric procedure. 5. Right thyroid nodule. 6. Dysphagia. 7. Hiatal hernia 8. Epigastric abdominal pain 9. Iron deficiency anemia. 10. Complications from bariatric procedure PLAN: 1. Recommend upper endoscopy with rigid dilator. 2. Results were manometry also confirming upper esophageal sphincter abnormality. 3. She has a symptomatic diaphragmatic hiatal hernia. Recommend repair. 4. She has a symptomatic thyroid nodule. May benefit from thyroidectomy. 5. Also recommend evaluation with bariatric dietitian for bariatric diet. 6. Recurrent bariatric metabolic panel. Objective - Vital Signs Vital signs: Vital Signs Temp 98.5 F 06/18/17 16:08 Pulse 91 06/18/17 16:08 Resp 16 06/18/17 16:08 BP 137/71 06/18/17 16:08 Pulse Ox Intake & Output 06/17/17 06/18/17 06/18/17 18:59 06:59 18:59 Weight 171.458 kg
== END | disposition home or self-care (01) ==
LOC: BARWHC3 15:19
PROVIDERS: ATTEND Surgery Plastic and Reconstructive Surgery
DX: Z09 Encounter for follow-up examination after completed treatment for conditions other than malignant neoplasm (principal); E66.01 Morbid (severe) obesity due to excess calories; E04.1 Nontoxic single thyroid nodule; R13.10 Dysphagia, unspecified; K44.9 Diaphragmatic hernia without obstruction or gangrene; R10.13 Epigastric pain; F50.9 Eating disorder, unspecified; F17.200 Nicotine dependence, unspecified, uncomplicated; K95.89 Other complications of other bariatric procedure; Z88.0 Allergy status to penicillin; Z91.040 Latex allergy status; Z79.899 Other long term (current) drug therapy; Z98.84 Bariatric surgery status
CPT/HCPCS: 99211

== ENCOUNTER 2017-07-16 08:11 | Day surgery (SDC) | payer MEDICARE, OTHER ==
[~2017-07-16 08:11] MED LIST changes: -LIDOCAINE 1% 20 ML VIAL (10MG/ML) FOR IV START INTRADERMA PRN
[2017-07-16 08:26] VITALS: TEMP 98
[2017-07-16] MEDS ORDERED: LACTATED RINGERS 1,000 ML IV ONE (08:27)
[2017-07-16] MEDS ORDERED: LIDOCAINE 1% 20 ML VIAL (10MG/ML) FOR IV START INTRADERMA ONE (08:28)
[2017-07-16 08:40] LABS: Glucose,Whole Blood 88 mg/dL (75-99)
--- NOTE | 2017-07-16 08:54 | P.GSHP ---
History of Present Illness H&P Date: 07/16/17 CHIEF COMPLAINT: Esophageal stricture HISTORY OF PRESENT ILLNESS: The patient is a 42-year-old female who presents reports dysphagia. Upper endoscopy was offered for further evaluation and management. PAST MEDICAL HISTORY: Please see list. PAST SURGICAL HISTORY: Please see list. MEDICATIONS: Please see list. ALLERGIES: Please see list. SOCIAL HISTORY: No illicit drug use FAMILY HISTORY: No reports of Crohn disease or ulcerative colitis. REVIEW OF ORGAN SYSTEMS: CONSTITUTIONAL: No reports of fevers or chills. GI: Denies any blood in stools or constipation. PHYSICAL EXAM: VITAL SIGNS: Stable GENERAL: Well-developed and pleasant in no acute distress. HEENT: No scleral icterus. Extraocular movements grossly intact. Moist buccal mucosa. NECK: Supple without lymphadenopathy. CHEST: Unlabored respirations. Equal bilateral excursions. CARDIOVASCULAR: Regular rate and rhythm. Distal 2+ pulses. ABDOMEN: Soft, nondistended. MUSCULOSKELETAL: No clubbing, cyanosis, or edema. ASSESSMENT: 1. Esophageal stricture PLAN: 1. Recommend proceeding with an upper endoscopy with rigid dilators. Past Medical History Past Medical History: Asthma, Chest Pain / Angina, Diabetes Mellitus, GERD/ Reflux, Hypertension, Pneumonia, Thyroid Disorder Additional Past Medical History / Comment(s): DIFFICULT SWALLOWING. Endometriosis,migraines, hay fever, palpitations, thyroid nodules, herniated disk, double vision occassionally History of Any Multi-Drug Resistant Organisms: None Reported Past Surgical History: Adenoidectomy, Bariatric Surgery, Section, Cholecystectomy, Heart Catheterization, Joint Replacement, Orthopedic Surgery, Tonsillectomy Additional Past Surgical History / Comment(s): left knee arthroscopy , left ACL , LT TKA, gastric bypass , lymph node removed left side of neck Past Anesthesia/Blood Transfusion Reactions: Previous Problems w/ Anesthesia, Motion Sickness Additional Past Anesthesia/Blood Transfusion Reaction / Comment(s): bad headache and diff breathing in recovery, Past Psychological History: Anxiety, Depression, Panic Disorder Additional Psychological History / Comment(s): Hx of panic attacks Smoking Status: Current every day smoker Past Alcohol Use History: Occasional Additional Past Alcohol Use History / Comment(s): smokes 2 cigarettes per day since 2000 Past Drug Use History: Marijuana Additional Drug Use History / Comment(s): rare use of marijuana - Past Family History Father Family Medical History: Cancer Medications and Allergies Home Medications Medication Instructions Recorded Confirmed Type amLODIPine [Norvasc] 10 mg PO QAM 02/09/14 07/14/17 History Oxymorphone HCl [Opana ER] 30 mg PO Q12HR 03/17/15 07/14/17 History Albuterol Inhaler [Ventolin Hfa 1 - 2 puff INHALATION Q6HR PRN 08/17/15 History Inhaler] Atenolol [Tenormin] 25 mg PO QAM 08/17/15 07/14/17 History Doxepin HCl [SINEquan] 50 mg PO HS 08/17/15 07/14/17 History Spironolactone-Hctz 25-25Mg 1 each PO QAM PRN 10/23/15 07/14/17 History [Aldactazide 25-25Mg] Dulaglutide [Trulicity] 1 dose SQ TH 07/14/17 07/14/17 History Multivitamins, Thera [Multivitamin 1 tab PO DAILY 07/14/17 07/14/17 History (formulary)] Allergies Allergy/AdvReac Type Severity Reaction Status Date / Time Latex, Natural Rubber Allergy Rash/Hives Verified 07/14/17 11:19 Penicillins Allergy Anaphylaxis Verified 07/14/17 11:19 venom-honey bee Allergy Anaphylaxis Verified 07/14/17 11:19 [bee venom (honey bee)] Surgical - Exam Vital Signs Temp Pulse Resp BP Pulse Ox 98.0 F 87 18 125/87 98 07/16/17 08:25 07/16/17 08:25 07/16/17 08:25 07/16/17 08:25 07/16/17 08:25
[2017-07-16] MEDS ORDERED: LIDOCAINE 1% INJ 10MG/ML (20 ML MDV) ONE (08:56)
[2017-07-16] MEDS ORDERED: PROPOFOL 10 MG/ML 20 ML VIAL IV ONE (08:56)
--- NOTE | 2017-07-16 09:17 | P.PCN ---
Date of Procedure: 07/16/17 Description of Procedure: PREOPERATIVE DIAGNOSIS: Dysphagia. Upper esophageal hypertensive sphincter POSTOPERATIVE DIAGNOSIS: Dysphagia. Upper esophageal hypertensive sphincter History of esophageal stricture. OPERATION: Esophagogastroduodenoscopy with rigid dilator from 42 to 57 Fr. SURGEON: Hiwot Rider MD ANESTHESIA: MAC. INDICATIONS: The patient is a 42-year-old female who presents with a history of dysphagia including epigastric pain. She has history of upper esophageal hypertensive sphincter. She reports trouble swallowing her pills. Benefits and risks of the procedure were described. Informed consent was obtained. DESCRIPTION: The patient was brought into the endoscopy suite and laid in the left lateral decubitus position. After a timeout was confirmed, the procedure was initiated. An Olympus gastroscope was passed to the posterior oropharynx where the upper esophageal sphincter was extremely tight. A 9.5 mm diameter upper scope was gently passed down the superior portion of the esophagus to the distal esophagus. The stomach was entered. No gastritis was identified. Next using an Czech rigid dilator, a guidewire was placed through the pediatric gastroscope. Next the scope was withdrawn. A 48-Belgian followed by 57-Belgian rigid Czech dilator was passed carefully along the posterior oropharynx to 30 to 40 cm and left in place for 2 minutes stretch. The dilator was withdrawn including the guidewire. The scope was reentered along the posterior oropharynx with no findings of full-thickness tear of the upper esophageal sphincter. No full-thickness injury was encountered. The GI tract was desufflated. The patient tolerated the procedure well. FINDINGS: Squamocolumnar junction unremarkable at 37 cm. Stricture of 40 Fr of the upper esophagus, consistent with hypertensive upper esophageal sphincter. Czech rigid dilator 48 to 57-Belgian used. LA grade A erosive esophagitis. Gastric pouch without moderate gastritis History of gastric bypass RECOMMENDATIONS: Upper endoscopy as needed Plan - Discharge Summary Discharge Rx Participant: No New Discharge Prescriptions: No Action amLODIPine [Norvasc] 10 mg PO QAM Oxymorphone HCl [Opana ER] 30 mg PO Q12HR Albuterol Inhaler [Ventolin Hfa Inhaler] 1 - 2 puff INHALATION Q6HR PRN PRN Reason: asthma Doxepin HCl [SINEquan] 50 mg PO HS Atenolol [Tenormin] 25 mg PO QAM Spironolactone-Hctz 25-25Mg [Aldactazide 25-25Mg] 1 each PO QAM PRN PRN Reason: LEG SWELLING Dulaglutide [Trulicity] 1 dose SQ TH Multivitamins, Thera [Multivitamin (formulary)] 1 tab PO DAILY Discharge Medication List amLODIPine [Norvasc] 10 mg PO QAM 02/09/14 [History] Oxymorphone HCl [Opana ER] 30 mg PO Q12HR 03/17/15 [History] Albuterol Inhaler [Ventolin Hfa Inhaler] 1 - 2 puff INHALATION Q6HR PRN [History] Atenolol [Tenormin] 25 mg PO QAM 08/17/15 [History] Doxepin HCl [SINEquan] 50 mg PO HS 08/17/15 [History] Spironolactone-Hctz 25-25Mg [Aldactazide 25-25Mg] 1 each PO QAM PRN 10/23/15 [ History] Dulaglutide [Trulicity] 1 dose SQ TH 07/14/17 [History] Multivitamins, Thera [Multivitamin (formulary)] 1 tab PO DAILY 07/14/17 [History ]
[2017-07-16 09:19] VITALS: RESP 16
[2017-07-16 09:39] VITALS: BP 139/86; PULSE 87
== END 2017-07-16 10:09 | disposition home or self-care (01) ==
LOC: ORWHC2ENDO 08:11
PROVIDERS: ATTEND Surgery Plastic and Reconstructive Surgery
DX: K22.2 Esophageal obstruction (principal); K21.9 Gastro-esophageal reflux disease without esophagitis; I10 Essential (primary) hypertension; J45.909 Unspecified asthma, uncomplicated; F17.210 Nicotine dependence, cigarettes, uncomplicated; E11.9 Type 2 diabetes mellitus without complications; Z98.84 Bariatric surgery status; F41.9 Anxiety disorder, unspecified; F32.9 Major depressive disorder, single episode, unspecified; F41.0 Panic disorder [episodic paroxysmal anxiety]; Z88.0 Allergy status to penicillin; Z79.891 Long term (current) use of opiate analgesic; Z79.899 Other long term (current) drug therapy; Z91.030 Bee allergy status; Z91.040 Latex allergy status
CPT/HCPCS: 81025; 43248; J2001; J2704; 43249

== ENCOUNTER → 2017-07-30 | Outpatient (CLI) | payer MEDICARE, OTHER ==
[2017-07-30 15:55] VITALS: BP 147/90; PULSE 116; RESP 16; TEMP 98.2; BMI 58.3
--- NOTE | 2017-08-23 15:55 | P.PN ---
Subjective Progress Note Date: 07/30/17 DATE OF SERVICE: 07/30/2017 CHIEF COMPLAINT: Follow gastric bypass HISTORY OF PRESENT ILLNESS: Zayra Alcantara is a 42-year-old female with previous history of Hal-en-Y gastric bypass performed at an outside institution in 2008. Prior to her surgery 9 years ago, she had weighed 368 pounds for her 5 foot 7-1/2 frame. Her ideal body weight is 158 pounds. Her body mass index was 56.8. Today she weighs 377 pounds. Her weight is unchanged since her visit 2 months ago. She is 9 pounds overweight from her initial bariatric weight. She reports gastroesophageal reflux disease. She has history of hypertensive upper esophageal sphincter. She reports improvement of her dysphagia. PAST MEDICAL HISTORY: 1. Super morbid obesity, BMI 58.3. 2. Gastroesophageal reflux disease. 3. Fibromyalgia. 4. Cardiomyopathy. 5. Endometriosis. 6. Severe osteoarthritis bilateral knees. 7. Diabetes type 2. 8. Thyroid nodule 9. Dysphagia 10. Asthma 11. Hiatal hernia PAST SURGICAL HISTORY: 1. Hal-en-Y gastric bypass. 2. Bilateral carpal tunnel release. 3. Colonoscopy. 4. Tonsillectomy. 5. Adenoidectomy. 6. Heart catheterization. 7. Laparoscopic incisional ventral hernia repair from scar. 8. Laparoscopic cholecystectomy. 9. Total knee replacement. 10. Corrective surgery for right orbital fracture. 11. . 12. Upper endoscopy MEDICATIONS: 1. Norvasc. 2. Aldactazide. 3. Opana. 4. Sinequan. 5. Tenormin. 6. Ventolin inhaler. ALLERGIES: LATEX and PENICILLIN. SOCIAL HISTORY: Still actively smokes. She also has alcohol use. FAMILY HISTORY: She had just had her son who is now 17 months old. Morbid obesity and diabetes in her family. REVIEW OF SYSTEMS: CONSTITUTIONAL: [place] body weight of 158 pounds for 5 foot 7-1/2 inch frame. Prior to her surgery 9 years ago, she had weighed 368 pounds for her 5 foot 7-1/2 frame. Her ideal body weight is 158 pounds. Her body mass index was 56.8. Today she weighs 377 pounds. She is 219 pounds overweight. ENDOCRINE: She reports thyroid nodularity and potential goiter. Her diabetes type 2 is now restarted. MUSCULOSKELETAL: She reports diffuse lower back pain, including hip pain and knee pain. GASTROINTESTINAL: No reports of dumping syndrome. No diarrhea. RESPIRATORY: Has asthma with obstructive sleep apnea. Also has hypertension. HEMATOLOGIC: History of iron deficiency anemia. NEURO: Has chronic pain. No reports of stroke or seizure disorder. HEENT: Wears glasses. Denies trouble with hearing. CARDIOVASCULAR: No reports of heart attack or chest pain. RESPIRATORY: History of bronchitis. NEURO: No reports of stroke or seizure disorders. PSYCH: Has depression and anxiety. Has fibromyalgia. PHYSICAL EXAM: VITAL SIGNS: 5 feet 7-1/2 inches, 377 pounds. Body mass index of 58.3. Vital Signs Temp 98.2 F 07/30/17 15:51 Pulse 116 H 07/30/17 15:51 Resp 16 07/30/17 15:51 BP 147/90 07/30/17 15:51 Pulse Ox ABDOMEN: Protuberant, soft, tender along the epigastrium. No recurrent palpable incisional hernias. GENERAL: Well-developed female in no acute distress. HEENT: Wears glasses. Extraocular muscles grossly intact. Moist buccal mucosa. NECK: Discrete right thyroid nodule. No lymphadenopathy. CHEST: Unlabored respirations. Equal bilateral excursions. CARDIOVASCULAR: Tachycardic. Regular rhythm. 2+ radial pulses. MUSCULOSKELETAL: No clubbing, cyanosis, or edema. PSYCH: Appropriate affect. Alert and oriented to person, place, and time. NEURO: No focal or lateralizing signs. Cranial nerves II-12 grossly intact. SKIN: Well perfused. Good skin turgor. EGD FINDINGS: Squamocolumnar junction unremarkable at 37 cm. Stricture of 40 Fr of the upper esophagus, consistent with hypertensive upper esophageal sphincter. [place]i rigid dilator 48 to 57-[place] Korean used. LA grade A erosive esophagitis. Gastric pouch without moderate gastritis History of gastric bypass ASSESSMENT: 1. Morbid obesity due to excess calories. 2. Body mass index of 58.3. 3. History of Hal-en-Y gastric bypass. 4. Weight gain following bariatric procedure. 5. Right thyroid nodule. 6. Dysphagia. 7. Hiatal hernia 8. Epigastric abdominal pain, improved 9. Iron deficiency anemia. 10. Complications from bariatric procedure 11. Hypertensive upper esophageal sphincter PLAN: 1. She has symptomatic diaphragmatic hiatal hernia. Will need hiatal hernia repair with revision of gastrojejunal anastomosis. 2. Robotic-assisted approach advised with likely intervention over 4 hours. 3. DVT prophylaxis 4. Antibiotic prophylaxis 5. Upper endoscopy as needed 6. Inpatient hospitalization more than 2 nights advised. Objective - Vital Signs Vital signs: Vital Signs Temp 98.2 F 07/30/17 15:51 Pulse 116 H 07/30/17 15:51 Resp 16 07/30/17 15:51 BP 147/90 07/30/17 15:51 Pulse Ox Intake & Output 07/29/17 07/30/17 07/30/17 18:59 06:59 18:59 Weight 171.486 kg
== END | disposition home or self-care (01) ==
LOC: BARWHC3 14:13
PROVIDERS: ATTEND Surgery Plastic and Reconstructive Surgery
DX: Z09 Encounter for follow-up examination after completed treatment for conditions other than malignant neoplasm (principal); E66.01 Morbid (severe) obesity due to excess calories; K95.89 Other complications of other bariatric procedure; R13.10 Dysphagia, unspecified; K44.9 Diaphragmatic hernia without obstruction or gangrene; K21.9 Gastro-esophageal reflux disease without esophagitis; D50.9 Iron deficiency anemia, unspecified; I10 Essential (primary) hypertension; E04.1 Nontoxic single thyroid nodule; M79.7 Fibromyalgia; I42.9 Cardiomyopathy, unspecified; N80.9 Endometriosis, unspecified; M17.0 Bilateral primary osteoarthritis of knee; F17.200 Nicotine dependence, unspecified, uncomplicated; E11.9 Type 2 diabetes mellitus without complications; J45.909 Unspecified asthma, uncomplicated; Z98.61 Coronary angioplasty status; Z68.43 Body mass index [BMI] 50.0-59.9, adult; Z96.659 Presence of unspecified artificial knee joint; Z79.51 Long term (current) use of inhaled steroids; Z79.899 Other long term (current) drug therapy; Z88.0 Allergy status to penicillin; Z91.040 Latex allergy status; Z83.3 Family history of diabetes mellitus; Z98.84 Bariatric surgery status; Z79.84 Long term (current) use of oral hypoglycemic drugs
CPT/HCPCS: 99211

== ENCOUNTER → 2017-10-08 | Outpatient (CLI) | payer MEDICARE, OTHER ==
[2017-10-08 16:27] VITALS: BP 186/89; PULSE 84; RESP 16; TEMP 99.3; BMI 58.6
--- NOTE | 2017-10-08 17:10 | P.PN ---
Subjective Progress Note Date: 10/08/17 HPI: She reports severe heartburn and epigastric pain from her hiatal hernia. PLAN: 1. Benefits and risk of surgery described. 2. 2 week protein diet. Objective - Vital Signs Vital signs: Vital Signs Temp 99.3 F 10/08/17 16:23 Pulse 84 10/08/17 16:23 Resp 16 10/08/17 16:23 BP 186/89 10/08/17 16:23 Pulse Ox Intake & Output 10/07/17 10/08/17 10/08/17 18:59 06:59 18:59 Weight 172.365 kg
== END | disposition home or self-care (01) ==
LOC: BARWHC3 15:12
PROVIDERS: ATTEND Surgery Plastic and Reconstructive Surgery
DX: K44.9 Diaphragmatic hernia without obstruction or gangrene (principal)
CPT/HCPCS: 99211

== ENCOUNTER 2017-10-13 06:35 | Inpatient (IN) | payer MEDICARE, OTHER ==
[2017-10-08 08:48] VITALS: BMI 52.4
--- NOTE | 2017-10-13 06:29 | P.GSHP ---
History of Present Illness H&P Date: 10/13/17 CHIEF COMPLAINT: Paraesophageal hiatal hernia with gastroesophageal reflux disease. HISTORY OF PRESENT ILLNESS: The patient is a 42-year-old female who presents with paraesophageal hiatal hernia. She has completed an esophageal manometry including upper endoscopy workup. Now she presents for surgical intervention. PAST MEDICAL HISTORY: Please see list. PAST SURGICAL HISTORY: Please see list. MEDICATIONS: Please see list. ALLERGIES: Please see list. SOCIAL HISTORY: No IVD use FAMILY HISTORY: No reports of Crohn disease or ulcerative colitis. REVIEW OF ORGAN SYSTEMS: CONSTITUTIONAL: No reports of fevers or chills. GI: Denies any blood in stools or constipation. PHYSICAL EXAM: VITAL SIGNS: Stable GENERAL: Well-developed pleasant and in no acute distress. HEENT: No scleral icterus. Extraocular movements grossly intact. Moist buccal mucosa. NECK: Supple without lymphadenopathy. CHEST: Unlabored respirations. Equal bilateral excursions. CARDIOVASCULAR: Regular rate and rhythm. Distal 2+ pulses. ABDOMEN: Soft, nondistended. No peritoneal signs. MUSCULOSKELETAL: No clubbing, cyanosis, or edema. SKIN: Well-perfused. Good skin turgor. MANOMETRY: Shows no evidence of achalasia or scleroderma. ASSESSMENT: 1. Diaphragmatic paraesophageal hiatal hernia with severe gastroesophageal reflux disease. PLAN: 1. Recommend proceeding with a robotic paraesophageal hiatal hernia with possible mesh. 2. Benefits and risks of surgical intervention was discussed including possibility of open technique. 3. Inpatient hospitalization recommended of 2 nights 4. DVT prophylaxis. 5. Antibiotic prophylaxis. 6. She has is on a very low caloric high-protein diet to address underlying hepatomegaly. Past Medical History Past Medical History: Asthma, Chest Pain / Angina, Diabetes Mellitus, Fibromyalgia, GERD/Reflux, Hypertension, Pneumonia, Thyroid Disorder Additional Past Medical History / Comment(s): endometriosis,migraines, hay fever , palpitations, thyroid nodules, herniated disk, double vision occassionally, polycystic ovaries History of Any Multi-Drug Resistant Organisms: None Reported Past Surgical History: Adenoidectomy, Bariatric Surgery, Section, Cholecystectomy, Heart Catheterization, Joint Replacement, Orthopedic Surgery, Tonsillectomy Additional Past Surgical History / Comment(s): left knee arthroscopy , left ACL , LT TKA, gastric bypass , lymph node removed right side of neck, laparoscopy Past Anesthesia/Blood Transfusion Reactions: Previous Problems w/ Anesthesia, Motion Sickness Additional Past Anesthesia/Blood Transfusion Reaction / Comment(s): bad headache and diff breathing in recovery, Smoking Status: Current every day smoker - Past Family History Father Family Medical History: Cancer Medications and Allergies Home Medications Medication Instructions Recorded Confirmed Type RX: amLODIPine [Norvasc] 10 mg PO QAM 02/09/14 10/09/17 History Oxymorphone HCl [Opana ER] 30 mg PO Q12HR 03/17/15 10/09/17 History Albuterol Inhaler [Ventolin Hfa 1 - 2 puff INHALATION Q6HR PRN 08/17/15 History Inhaler] Atenolol [Tenormin] 25 mg PO QAM 08/17/15 10/09/17 History Doxepin HCl [SINEquan] 50 mg PO HS PRN 08/17/15 10/09/17 History Spironolactone-Hctz 25-25Mg 1 each PO QAM PRN 10/23/15 10/09/17 History [Aldactazide 25-25Mg] Dulaglutide [Trulicity] 1 dose SQ TH 07/14/17 10/09/17 History Multivitamins, Thera [Multivitamin 1 tab PO DAILY 07/14/17 10/09/17 History (formulary)] Cholecalciferol (Vitamin D3) 5,000 unit PO DAILY 10/08/17 10/09/17 History [Vitamin D3] Allergies Allergy/AdvReac Type Severity Reaction Status Date / Time Latex, Natural Rubber Allergy Rash/Hives Verified 10/09/17 14:58 Penicillins Allergy Anaphylaxis Verified 10/09/17 14:58 venom-honey bee Allergy Anaphylaxis Verified 10/09/17 14:58 [bee venom (honey bee)]
[~2017-10-13 06:35] MED LIST changes: +CHLORHEXIDINE GLUCONATE 15 ML CUP MUCOUS MEM ONE; +CLINDAMYCIN 900 MG in DEXTROSE 5% IN WATER 50 ML IVPB ONE; +DEXAMETHASONE SOD PHOSPHATE 10 MG/ML 1 ML VIAL IV ONE; +ENOXAPARIN 40 MG/0.4 ML SYRINGE SQ STA; +HYDROmorphone 0.5 MG/0.5 ML SYRINGE IVP PRN; -LACTATED RINGERS 1,000 ML IV SCH; +LEVOFLOXACIN 500MG-D5W PMX 500 MG in DEXTROSE/WATER 1 100ML.BAG IVPB ONE; +MORPHINE SULFATE 4 MG/ML SYRINGE IV PRN; +ONDANSETRON 4 MG/2 ML VIAL IVP ONE; +PANTOPRAZOLE 40 MG/10 ML VIAL IV STA; +SCOPOLAMINE 1.5MG/72HR PATCH TRANSDERM SCH
[2017-10-13 07:16] LABS: Glucose,Whole Blood 102 mg/dL (75-99)
[2017-10-13] MEDS: LACTATED RINGERS 1,000 ML IV SCH ×3 (07:25→07:45)
[2017-10-13] MEDS ORDERED: LIDOCAINE 1% 20 ML VIAL (10MG/ML) FOR IV START INTRADERMA ONE (07:30)
[2017-10-13] MEDS ORDERED: ROCURONIUM BROMIDE 10 MG/ML 10 ML VIAL IV ONE (07:42)
[2017-10-13] MEDS ORDERED: LIDOCAINE 1% INJ 10MG/ML (20 ML MDV) ONE (07:42)
[2017-10-13] MEDS ORDERED: SUCCINYLCHOLINE CHLORIDE VIAL 200 MG/10 ML VIAL IV ONE (07:42)
[2017-10-13] MEDS ORDERED: GLYCOPYRROLATE 0.2 MG/ML 2 ML VIAL ONE (07:42)
[2017-10-13] MEDS ORDERED: MIDAZOLAM 2 MG/2 ML VIAL ONE (07:42)
[2017-10-13] MEDS ORDERED: MORPHINE SULFATE 10 MG/ML SYRINGE ONE (07:42)
[2017-10-13] MEDS ORDERED: PROPOFOL 10 MG/ML 20 ML VIAL IV ONE (07:42)
[2017-10-13] MEDS ORDERED: fentaNYL (PF) 50 MCG/ML 2 ML AMP ONE (07:42)
[2017-10-13] MEDS ORDERED: NEOSTIGMINE 1 MG/ML 10 ML VIAL ONE (07:42)
[2017-10-13] MEDS ORDERED: BUPIVACAINE (PF) 0.5% 30 ML VIAL SQ ONE (08:37)
--- NOTE | 2017-10-13 10:05 | P.PCN ---
Date of Procedure: 10/13/17 Preoperative Diagnosis: Hiatal hernia, epigastric abdominal pain, history of gastric bypass Postoperative Diagnosis: Same, severe hepatomegaly obscuring view of hiatus, peritoneal adhesions, morbid obesity excess calories, BMI 58.4 Procedure(s) Performed: Attempted robotic-assisted laparoscopic hiatal hernia repair abandoned for extensive lysis of adhesions over 1 hr, intraoperative esophagogastrojejunoscopy Anesthesia: GETA, local Surgeon: Hiwot Rider Estimated Blood Loss (ml): 10 Pathology: none sent Condition: stable Disposition: same day Operative Findings: 1. Severe hepatomegaly obscuring view of the hiatus hence hiatal hernia repair abandoned 2. Adhesions involving liver including Hal limb and gastric pouch requiring extensive lysis of adhesions without enterotomy 3. Upper endoscopy demonstrating no injury to gastric pouch 4. Retrocolic antegastric anastomosis identified adding complexity case for gastrojejunostomy
[2017-10-13] MEDS ORDERED: HYDROmorphone 1 MG/ML 1 ML SYRINGE IVP ONE ×3 (10:10→10:40)
[2017-10-13 10:19] VITALS: TEMP 98.6
[2017-10-13 10:34] LABS: Glucose,Whole Blood 171 mg/dL (75-99)
[2017-10-13] MEDS ORDERED: ONDANSETRON 4 MG/2 ML VIAL IVP ONE (10:41)
[2017-10-13 11:17] VITALS: RESP 16
[2017-10-13 11:53] VITALS: BP 101/63; PULSE 90
== END 2017-10-13 12:38 | disposition home or self-care (01) | DRG 336 ==
LOC: 2ORMAIN 06:35 → 3SUR 10:14
PROVIDERS: ADMIT Surgery Plastic and Reconstructive Surgery; ATTEND Surgery Plastic and Reconstructive Surgery
PROC: 8E0W4CZ Robotic Assisted Procedure of Trunk Region, Percutaneous Endoscopic Approach (ICD-10-PCS; 2017-10-13)
PROC: 0DNW4ZZ Release Peritoneum, Percutaneous Endoscopic Approach (ICD-10-PCS; principal; 2017-10-13 08:00)
DX: K44.9 Diaphragmatic hernia without obstruction or gangrene (principal); Z68.43 Body mass index [BMI] 50.0-59.9, adult; E66.01 Morbid (severe) obesity due to excess calories; Z53.09 Procedure and treatment not carried out because of other contraindication; R16.0 Hepatomegaly, not elsewhere classified; K21.9 Gastro-esophageal reflux disease without esophagitis; F17.200 Nicotine dependence, unspecified, uncomplicated; K66.0 Peritoneal adhesions (postprocedural) (postinfection); Z96.652 Presence of left artificial knee joint; Z90.49 Acquired absence of other specified parts of digestive tract; Z98.84 Bariatric surgery status; Z79.899 Other long term (current) drug therapy; Z88.0 Allergy status to penicillin; Z91.030 Bee allergy status; Z91.040 Latex allergy status
CPT/HCPCS: 81025

== ENCOUNTER → 2018-07-29 | Outpatient (CLI) | payer MEDICARE, OTHER ==
[2018-07-29 15:23] VITALS: BP 153/84; PULSE 79; RESP 16; TEMP 98
--- NOTE | 2018-07-29 16:00 | P.PN ---
Subjective Progress Note Date: 07/29/18 DATE OF SERVICE: 07/29/2018 CHIEF COMPLAINT: Epigastric abdominal pain HISTORY OF PRESENT ILLNESS: Zayra Alcantara is a 43-year-old female with previous history of Hal-en-Y gastric bypass performed at an outside institution in 2008. She is on keto diet. She has maintained her weight loss of 30+ pounds for 1 year. She is eating over 6 g of sugar daily. She reports epigastric abdominal pain with atypical chest pain. Her ideal body weight is 158 pounds. Her body mass index was 59.5 Today she weighs 331 pounds from 351 pounds, 2 months ago. She has lost 18 pounds since her last visit, 2 months ago. She is 173 pounds overweight. Total lifetime weight loss is 48 pounds. Percent excess weight loss of 22%. PAST MEDICAL HISTORY: 1. Super morbid obesity, BMI 59.5. 2. Gastroesophageal reflux disease. 3. Fibromyalgia. 4. Cardiomyopathy. 5. Endometriosis. 6. Severe osteoarthritis bilateral knees. 7. Diabetes type 2. 8. Thyroid nodule 9. Dysphagia 10. Asthma 11. Hiatal hernia PAST SURGICAL HISTORY: 1. Hal-en-Y gastric bypass. 2. Bilateral carpal tunnel release. 3. Colonoscopy. 4. Tonsillectomy. 5. Adenoidectomy. 6. Heart catheterization. 7. Laparoscopic incisional ventral hernia repair from scar. 8. Laparoscopic cholecystectomy. 9. Total knee replacement. 10. Corrective surgery for right orbital fracture. 11. . 12. Upper endoscopy MEDICATIONS: 1. Norvasc. 2. Aldactazide. 3. Opana. 4. Sinequan. 5. Tenormin. 6. Ventolin inhaler. ALLERGIES: LATEX and PENICILLIN. SOCIAL HISTORY: Still actively smokes. She also has alcohol use. FAMILY HISTORY: She had just had her son who is now 17 months old. Morbid obesity and diabetes in her family. REVIEW OF SYSTEMS: CONSTITUTIONAL: Cascade body weight of 158 pounds for 5 foot 7-1/2 inch frame. Highest 379 pounds now with BMI 59.5 highest. ENDOCRINE: She reports thyroid nodularity and potential goiter. Her diabetes type 2 is now recurred. MUSCULOSKELETAL: She reports diffuse lower back pain, including hip pain and knee pain. GASTROINTESTINAL: No reports of dumping syndrome. No diarrhea. Has severe GERD. RESPIRATORY: Has asthma with obstructive sleep apnea. Also has hypertension. HEMATOLOGIC: History of iron deficiency anemia. NEURO: Has chronic pain. No reports of stroke or seizure disorder. HEENT: Wears glasses. Denies trouble with hearing. CARDIOVASCULAR: No reports of heart attack or chest pain. RESPIRATORY: History of bronchitis. NEURO: No reports of stroke or seizure disorders. PSYCH: Has depression and anxiety. Has fibromyalgia. PHYSICAL EXAM: VITAL SIGNS: 5 feet 7-1/2 inches, 331 pounds. Body mass index of 51.9 Vital Signs Temp 98.0 F 07/29/18 15:21 Pulse 79 07/29/18 15:21 Resp 16 07/29/18 15:21 BP 153/84 07/29/18 15:21 Pulse Ox ABDOMEN: Protuberant, soft, tender along the epigastrium. GENERAL: Well-developed female in no acute distress. HEENT: Wears glasses. Extraocular muscles grossly intact. Moist buccal mucosa. NECK: Discrete right thyroid nodule. No lymphadenopathy. CHEST: Unlabored respirations. Equal bilateral excursions. CARDIOVASCULAR: Tachycardic. Regular rhythm. 2+ radial pulses. MUSCULOSKELETAL: No clubbing, cyanosis, or edema. PSYCH: Appropriate affect. Alert and oriented to person, place, and time. NEURO: No focal or lateralizing signs. Cranial nerves II-12 grossly intact. SKIN: Well perfused. Good skin turgor. ASSESSMENT: 1. Morbid obesity due to excess calories. 2. Body mass index of 59.5 to 51.9. 3. History of Hal-en-Y gastric bypass. 4. Weight gain following bariatric procedure. 5. Right thyroid nodule. 6. Dysphagia. 7. Hiatal hernia 8. Epigastric abdominal pain 9. Iron deficiency anemia. 10. Complications from bariatric procedure 11. Hypertensive upper esophageal sphincter 12. Tobacco abuse. 13. Gastroesophageal reflux disease 14. Change in bowel habits PLAN: 1. Recommend bariatric labs with correction of nutrient deficiencies. 2. Recommend two week protein diet 3. Recommend [employer] 4. She has thyroid disorder and wants resection 5. Robotic hiatal hernia repair described as she is high risk with history of non-compliance 6. Recommend EGD for worsening gastroesophageal reflux disease 7. Recommend colonoscopy for change in bowel habits. Objective - Vital Signs Vital signs: Vital Signs Temp 98.0 F 07/29/18 15:21 Pulse 79 07/29/18 15:21 Resp 16 07/29/18 15:21 BP 153/84 07/29/18 15:21 Pulse Ox
== END | disposition home or self-care (01) ==
LOC: BARWHC3 14:28
PROVIDERS: ATTEND Surgery Plastic and Reconstructive Surgery
DX: E66.01 Morbid (severe) obesity due to excess calories (principal); E04.1 Nontoxic single thyroid nodule; R13.10 Dysphagia, unspecified; K44.9 Diaphragmatic hernia without obstruction or gangrene; D50.9 Iron deficiency anemia, unspecified; K22.8 Other specified diseases of esophagus; K21.9 Gastro-esophageal reflux disease without esophagitis; R19.4 Change in bowel habit; K95.89 Other complications of other bariatric procedure; J45.909 Unspecified asthma, uncomplicated; F17.200 Nicotine dependence, unspecified, uncomplicated; Z68.43 Body mass index [BMI] 50.0-59.9, adult; Z98.84 Bariatric surgery status; Z98.890 Other specified postprocedural states; Z79.899 Other long term (current) drug therapy; Z88.0 Allergy status to penicillin
CPT/HCPCS: 99211

== ENCOUNTER 2018-08-27 12:01 | Emergency (ER) | payer MEDICARE, OTHER ==
[2018-08-26 11:42] VITALS: BMI 50.9
[2018-08-27 08:08] LABS: Glucose,Whole Blood 96 mg/dL (75-99)
--- NOTE | 2018-08-27 08:47 | P.GSHP ---
History of Present Illness H&P Date: 08/27/18 CHIEF COMPLAINT: GERD and change in bowel habits HISTORY OF PRESENT ILLNESS: The patient is a 43-year-old female who presents with gastroesophageal reflux disease and change in bowel habits. Upper and lower endoscopy were offered for further evaluation and management. PAST MEDICAL HISTORY: Please see list. PAST SURGICAL HISTORY: Please see list. MEDICATIONS: Please see list. ALLERGIES: Please see list. SOCIAL HISTORY: No illicit drug use FAMILY HISTORY: No reports of Crohn disease or ulcerative colitis. REVIEW OF ORGAN SYSTEMS: CONSTITUTIONAL: No reports of fevers or chills. GI: Denies any blood in stools or constipation. PHYSICAL EXAM: VITAL SIGNS: Stable GENERAL: Well-developed pleasant in no acute distress. HEENT: No scleral icterus. Extraocular movements grossly intact. Moist buccal mucosa. NECK: Supple without lymphadenopathy. CHEST: Unlabored respirations. Equal bilateral excursions. CARDIOVASCULAR: Regular rate and rhythm. Distal 2+ pulses. ABDOMEN: Soft, nondistended. MUSCULOSKELETAL: No clubbing, cyanosis, or edema. ASSESSMENT: 1. Gastroesophageal reflux disease 2. Change in bowel habits PLAN: 1. Recommend proceeding with an upper and lower endoscopy ADDENDUM: Patient now reports worsening discomfort along her lower neck with history of goiter. Patient advised to follow up with the appropriate provider for possible thyroidectomy. With the patient's risks, per anesthesia recommendation for general anesthetic also conveyed to the patient. Past Medical History Past Medical History: Asthma, Chest Pain / Angina, Diabetes Mellitus, Fibromyalgia, GERD/Reflux, Hypertension, Pneumonia, Thyroid Disorder Additional Past Medical History / Comment(s): endometriosis,migraines, hay fever, palpitations, thyroid nodules, herniated disc, blurred vision occassionally, polycystic ovaries, hiatal hernia,"headaches like a band around head","difficulty swallowing pills", upper front dental bridges. History of Any Multi-Drug Resistant Organisms: None Reported Past Surgical History: Adenoidectomy, Bariatric Surgery, Section, Cholecystectomy, Heart Catheterization, Joint Replacement, Orthopedic Surgery, Tonsillectomy Additional Past Surgical History / Comment(s): left knee arthroscopy , left ACL, LT TKA then 2nd sx to repair, gastric bypass , lymph node removed right side of neck, laparoscopy, COLONOSCOPY/EGD Past Anesthesia/Blood Transfusion Reactions: Previous Problems w/ Anesthesia, Motion Sickness Additional Past Anesthesia/Blood Transfusion Reaction / Comment(s): bad headache and diff breathing in recovery, Smoking Status: Former smoker - Past Family History Mother Additional Family Medical History / Comment(s): back sx Father Family Medical History: Cancer, Myocardial Infarction ([place]), Renal Disease Medications and Allergies Home Medications Medication Instructions Recorded Confirmed Type amLODIPine [Norvasc] 10 mg PO DAILY 02/09/14 08/27/18 History Oxymorphone HCl [Opana ER] 30 mg PO Q12HR 03/17/15 08/27/18 History Albuterol Inhaler [Ventolin Hfa 1 - 2 puff INHALATION RT-Q6H PRN 08/17/15 08/27/18 History Inhaler] Spironolactone-Hctz 25-25Mg 1 tab PO QAM PRN 10/23/15 08/27/18 History [Aldactazide 25-25 MG] Multivitamins, Thera [Multivitamin 1 tab PO DAILY 07/14/17 08/27/18 History (formulary)] Cholecalciferol (Vitamin D3) 5,000 unit PO DAILY 10/08/17 08/27/18 History [Vitamin D3] Dulaglutide [Trulicity] 0.75 mg SQ MO 10/13/17 08/27/18 History Methocarbamol [Robaxin] 500 mg PO TID PRN 03/03/18 08/27/18 History Acetaminophen Tab [Tylenol] 325 mg PO Q6HR PRN #15 tab 03/05/18 08/27/18 Rx Atenolol [Tenormin] 50 mg PO DAILY 08/26/18 08/27/18 History Allergies Allergy/AdvReac Type Severity Reaction Status Date / Time Latex, Natural Rubber Allergy Rash/Hives Verified 08/27/18 07:53 Penicillins Allergy Anaphylaxis Verified 08/27/18 07:53 venom-honey bee Allergy Anaphylaxis Verified 08/27/18 07:53 [bee venom (honey bee)] Surgical - Exam Vital Signs Temp Pulse Resp BP Pulse Ox 97.6 F 69 16 140/72 96 08/27/18 07:55 08/27/18 07:55 08/27/18 07:55 08/27/18 07:55 08/27/18 07:55
--- NOTE | 2018-08-27 09:22 | P.HPADDEND ---
H&P Addendum H&P Addendum Date: 08/27/18 Patient comes in with acute thyroiditis and pain along the neck. With these acute findings, upper and lower endoscopy canceled. Immediate referral to an weeder thinner and washhouse hand advised as patient will likely need thyroidectomy for worsening symptoms.
--- NOTE | 2018-08-27 09:38 | P.PN ---
Progress Note - Text Progress Note Date: 08/27/18 With severity of thyroiditis including acute onset neck pain and underlying dyspnea, stat CT of the neck with IV ordered including thyroid panel, CBC, CMP, with pending admission.
[2018-08-27 10:03] LABS: Basophils # (A) 0.1 k/uL (0-0.2); Basophils % (A) 1 %; Eosinophils # (A) 0.2 k/uL (0-0.7); Eosinophils % (A) 3 %; HCT 39.5 % (34.0-46.0); HGB 12.3 gm/dL (11.4-16.0); Hypochromasia Slight; Lymphocytes # (A) 2.8 k/uL (1.0-4.8); Lymphocytes % (A) 30 %; MCH 28.9 pg (25.0-35.0); MCHC 31.1 g/dL (31.0-37.0); MCV 92.8 fL (80.0-100.0); Mean Platelet Volume 7.6; Monocytes # (A) 0.2 k/uL (0-1.0); Monocytes % (A) 3 %; Neutrophils # (A) 5.7 k/uL (1.3-7.7); Neutrophils % (A) 61 %; Platelet Count 315 k/uL (150-450); RBC 4.26 m/uL (3.80-5.40); RDW 14.5 % (11.5-15.5); WBC 9.3 k/uL (3.8-10.6)
[2018-08-27 10:15] LABS: ALT 22 U/L (9-52); AST 18 U/L (14-36); Albumin 4.1 g/dL (3.5-5.0); Alkaline Phosphatase 70 U/L (38-126); Anion Gap 10 mmol/L; Blood Urea Nitrogen 10 mg/dL (7-17); Calcium 9.3 mg/dL (8.4-10.2); Carbon Dioxide 24 mmol/L (22-30); Chloride 106 mmol/L (98-107); Glucose 86 mg/dL (74-99); Sodium 140 mmol/L (137-145); Total Bilirubin 0.7 mg/dL (0.2-1.3); Total Protein 7.3 g/dL (6.3-8.2)
--- NOTE | 2018-08-27 11:18 | CT ---
"EXAMINATION TYPE: CT neck chest w con DATE OF EXAM: 08/27/2018 COMPARISON: 06/10/2014 HISTORY: Esophageal narrowing, right side neck pain, chest pain, difficulty breathing. CT DLP: 2337.9 mGycm Automated exposure control for dose reduction was used. CONTRAST: Performed with IV Contrast, patient injected with 100 mL of Isovue 300. FINDINGS: Woodenware Assembler spaces appear normal. Torus tubarius and fossa of Rosenmuller appear unremarkable. Parotid glands appear symmetrical. Submandibular glands appear normal. Beam hardening artifact from dental a malgam is present to the level of the mandible. Paranasal sinuses visualized are clear. Hypopharynx appears slightly displaced towards the left. No underlying mass however is evident at the right tonsillar pillar. Prevertebral space appears normal. Parapharyngeal spaces appear within mu l limits. Vocal cord level appear symmetrical. Subglottic airway is normal. There is some heterogeneity within the right lobe thyroid. This was present in 2014. Esophagus in the upper thoracic region appears norm al. CT CHEST: The ascending thoracic aorta at the level of the main pulmonary artery is 2.9 cm. Main pulm onary bifurcation is 2.6 cm. There is some linear opacity within the ascending thoracic aorta adjacen t to the level of the main pulmonary artery. Partial dissection may be present. Postsurgical changes are within the stomach. Upper abdomen appears unremarkable. IMPRESSION: 1. PARTIAL DISSECTION OF THE ASCENDING THORACIC AORTA AT THE AORTIC ROOT ASCENDING TOWARDS THE LEVEL OF THE MAIN PULMONARY ARTERY IS NOT EXCLUDED. THIS CAN BE ARTIFACT FROM PULSATION ARTIFACT. FOLLOW-UP CTA THORACIC AORTA IS RECOMMENDED. 2. THERE IS SOME LEFT HYPOPHARYNX DEVIATION WITH FULLNESS IN THE TONSILLAR PILLAR REGION. UNDERLYING MASS HOWEVER IS NOT EVIDENT. A Red level critical message alert has been initiated for Hiwot Rider MD via the [employer] | Critical Results System on 08/27/2018 11:13 AM. This message alert has been sent to Hiwot fraser MD via the preferences provided by the clinician for the receipt of Radiology Critical Findings . Message ID [id number]."
[~2018-08-27 12:01] MED LIST changes: -CHLORHEXIDINE GLUCONATE 15 ML CUP MUCOUS MEM ONE; -CLINDAMYCIN 900 MG in DEXTROSE 5% IN WATER 50 ML IVPB ONE; -DEXAMETHASONE SOD PHOSPHATE 10 MG/ML 1 ML VIAL IV ONE; -ENOXAPARIN 40 MG/0.4 ML SYRINGE SQ STA; -HYDROmorphone 0.5 MG/0.5 ML SYRINGE IVP PRN; +IV FLUID CONTINUATION 400 ML IV ONE; +LACTATED RINGERS 1,000 ML IV SCH; -LEVOFLOXACIN 500MG-D5W PMX 500 MG in DEXTROSE/WATER 1 100ML.BAG IVPB ONE; +LIDOCAINE 1% 20 ML VIAL (10MG/ML) FOR IV START INTRADERMA PRN; -MORPHINE SULFATE 4 MG/ML SYRINGE IV PRN; -ONDANSETRON 4 MG/2 ML VIAL IVP ONE; -PANTOPRAZOLE 40 MG/10 ML VIAL IV STA; -SCOPOLAMINE 1.5MG/72HR PATCH TRANSDERM SCH
[2018-08-27] MEDS ORDERED: SODIUM CHLORIDE 0.9% 1,000 ML IV ONE (12:16)
[2018-08-27] MEDS ORDERED: LORazepam 2 MG/ML INJ IV STA (12:16)
--- NOTE | 2018-08-27 12:21 | ED ---
General Adult HPI - General Time Seen by Provider: 08/27/18 12:01 Source: RN notes reviewed - History of Present Illness Initial comments: This is a 43-year-old female presents emergency department from the OR. Dr. Barrett hesitation in to do an endoscopy and colonoscopy today. Patient was complaining of neck pain going on the right side. Dr. Barrett did a CTA of the neck it showed a possible dissection but it could be artifact so radiology recom mended a CT injury of the chest. Dr. Barrett sent the patient to the emergency department. Patient currently is still claiming of right-sided neck pain patient denies any chest pain or difficulty breathing or shortness of breath. Patient states she is very anxious after hearing the news. Patient denies headache patient denies numbness weakness. Patient denies any recent fever chills or cough. She denies any abdominal pain. - Related Data Home Medications Medication Instructions Recorded Confirmed amLODIPine [Norvasc] 10 mg PO DAILY 02/09/14 08/27/18 Oxymorphone HCl [Opana ER] 30 mg PO Q12HR 03/17/15 08/27/18 Albuterol Inhaler [Ventolin Hfa 1 - 2 puff INHALATION RT-Q6H PRN 08/17/15 08/27/18 Inhaler] Spironolactone-Hctz 25-25Mg 1 tab PO QAM PRN 10/23/15 08/27/18 [Aldactazide 25-25 MG] Multivitamins, Thera [Multivitamin 1 tab PO DAILY 07/14/17 08/27/18 (formulary)] Cholecalciferol (Vitamin D3) 5,000 unit PO DAILY 10/08/17 08/27/18 [Vitamin D3] Dulaglutide [Trulicity] 0.75 mg SQ MO 10/13/17 08/27/18 Methocarbamol [Robaxin] 500 mg PO TID PRN 03/03/18 08/27/18 Atenolol [Tenormin] 50 mg PO DAILY 08/26/18 08/27/18 Previous Rx's Medication Instructions Recorded Acetaminophen Tab [Tylenol] 325 mg PO Q6HR PRN #15 tab 03/05/18 Allergies Allergy/AdvReac Type Severity Reaction Status Date / Time Latex, Natural Rubber Allergy Rash/Hives Verified 08/27/18 12:27 Penicillins Allergy Anaphylaxis Verified 08/27/18 12:27 venom-honey bee Allergy Anaphylaxis Verified 08/27/18 12:27 [bee venom (honey bee)] Review of Systems ROS Statement: Those systems with pertinent positive or pertinent negative responses have been documented in the HPI. ROS Other: All systems not noted in ROS Statement are negative. Past Medical History Past Medical History: Asthma, Chest Pain / Angina, Diabetes Mellitus, Fibromyalgia, GERD/Reflux, Hypertension, Pneumonia, Thyroid Disorder Additional Past Medical History / Comment(s): endometriosis,migraines, hay fever, palpitations, thyroid nodules, herniated disc, blurred vision occassionally, polycystic ovaries, hiatal hernia,"headaches like a band around head","difficulty swallowing pills", upper front dental bridges. History of Any Multi-Drug Resistant Organisms: None Reported Past Surgical History: Adenoidectomy, Bariatric Surgery, Section, Cholecystectomy, Heart Catheterization, Joint Replacement, Orthopedic Surgery, Tonsillectomy Additional Past Surgical History / Comment(s): left knee arthroscopy , left ACL, LT TKA then 2nd sx to repair, gastric bypass , lymph node removed right side of neck, laparoscopy, COLONOSCOPY/EGD Past Anesthesia/Blood Transfusion Reactions: Previous Problems w/ Anesthesia, Motion Sickness Additional Past Anesthesia/Blood Transfusion Reaction / Comment(s): bad headache and diff breathing in recovery, Smoking Status: Former smoker - Past Family History Mother Additional Family Medical History / Comment(s): back sx Father Family Medical History: Cancer, Myocardial Infarction ([place]), Renal Disease General Exam - General Exam Comments Initial Comments: GENERAL: Patient is well-developed and well-nourished. Patient is nontoxic and well- hydrated and is in mild distress. ENT: Neck is soft and supple. No significant lymphadenopathy is noted. Oropharynx is clear. Moist mucous membranes. Neck has full range of motion without eliciting any pain. EYES: The sclera were anicteric and conjunctiva were pink and moist. Extraocular movements were intact and pupils were equal round and reactive to light. Eyelid s were unremarkable. PULMONARY: Unlabored respirations. Good breath sounds bilaterally. No audible rales rhonchi or wheezing was noted. CARDIOVASCULAR: There is a regular rate and rhythm without any murmurs gallops or rubs. ABDOMEN: Soft and nontender with normal bowel sounds. No palpable organomegaly was noted. There is no palpable pulsatile mass. SKIN: Skin is clear with no lesions or rashes and otherwise unremarkable. NEUROLOGIC: Patient is alert and oriented x3. Cranial nerves II through XII are grossly intact. Motor and sensory are also intact. Normal speech, volume and content. Symmetrical smile. MUSCULOSKELETAL: Normal extremities with adequate strength and full range of motion. No lower extremity swelling or edema. No calf tenderness. 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 Patient was asymptomatic in the emergency department I spoke with Dr. Barrett she wanted the patient to go home and follow-up with her as an outpatient EKG shows normal sinus rhythm at 92 bpm NH interval 270 QRS is 84 QT interval 368 QTC is 455. EKG is unchanged from previous EKGs. - Lab Data Result diagrams: 08/27/18 12:23 08/27/18 12:23 Lab Results 08/27/18 08/27/18 08/27/18 Range/Units 08:05 09:41 09:41 WBC 9.3 (3.8-10.6) k/uL RBC 4.26 (3.80-5.40) m/uL Hgb 12.3 (11.4-16.0) gm/dL Hct 39.5 (34.0-46.0) % MCV 92.8 (80.0-100.0) fL MCH 28.9 (25.0-35.0) pg MCHC 31.1 (31.0-37.0) g/dL RDW 14.5 (11.5-15.5) % Plt Count 315 (150-450) k/uL Neutrophils % 61 % Lymphocytes % 30 % Monocytes % 3 % Eosinophils % 3 % Basophils % 1 % Neutrophils # 5.7 (1.3-7.7) k/uL Lymphocytes # 2.8 (1.0-4.8) k/uL Monocytes # 0.2 (0-1.0) k/uL Eosinophils # 0.2 (0-0.7) k/uL Basophils # 0.1 (0-0.2) k/uL Hypochromasia Slight Sodium 140 (137-145) mmol/L Potassium 4.0 (3.5-5.1) mmol/L Chloride 106 (98-107) mmol/L Carbon Dioxide 24 (22-30) mmol/L Anion Gap 10 mmol/L BUN 10 (7-17) mg/dL Creatinine 0.57 (0.52-1.04) mg/dL Est GFR (CKD-EPI)AfAm >90 (>60 ml/min/1.73 sqM) Est GFR (CKD-EPI)NonAf >90 (>60 ml/min/1.73 sqM) Glucose 86 (74-99) mg/dL POC Glucose (mg/dL) 96 (75-99) mg/dL POC Glu Buggy Driver ID Joaquina Purcell Calcium 9.3 (8.4-10.2) mg/dL Total Bilirubin 0.7 (0.2-1.3) mg/dL AST 18 (14-36) U/L ALT 22 (9-52) U/L Alkaline Phosphatase 70 (38-126) U/L Troponin I (0.000-0.034) ng/mL Total Protein 7.3 (6.3-8.2) g/dL Albumin 4.1 (3.5-5.0) g/dL TSH 3.540 (0.465-4.680) mIU/L 08/27/18 08/27/18 08/27/18 Range/Units 12:23 12:23 12:23 WBC 10.9 H (3.8-10.6) k/uL RBC 4.49 (3.80-5.40) m/uL Hgb 12.8 (11.4-16.0) gm/dL Hct 40.6 (34.0-46.0) % MCV 90.4 (80.0-100.0) fL MCH 28.5 (25.0-35.0) pg MCHC 31.5 (31.0-37.0) g/dL RDW 15.2 (11.5-15.5) % Plt Count 368 (150-450) k/uL Neutrophils % 55 % Lymphocytes % 32 % Monocytes % 5 % Eosinophils % 3 % Basophils % 1 % Neutrophils # 6.0 (1.3-7.7) k/uL Lymphocytes # 3.5 (1.0-4.8) k/uL Monocytes # 0.6 (0-1.0) k/uL Eosinophils # 0.3 (0-0.7) k/uL Basophils # 0.1 (0-0.2) k/uL Hypochromasia Sodium 140 (137-145) mmol/L Potassium 3.5 (3.5-5.1) mmol/L Chloride 104 (98-107) mmol/L Carbon Dioxide 24 (22-30) mmol/L Anion Gap 12 mmol/L BUN 9 (7-17) mg/dL Creatinine 0.60 (0.52-1.04) mg/dL Est GFR (CKD-EPI)AfAm >90 (>60 ml/min/1.73 sqM) Est GFR (CKD-EPI)NonAf >90 (>60 ml/min/1.73 sqM) Glucose 112 H (74-99) mg/dL POC Glucose (mg/dL) (75-99) mg/dL POC Glu Buggy Driver ID Calcium 9.6 (8.4-10.2) mg/dL Total Bilirubin 0.7 (0.2-1.3) mg/dL AST 16 (14-36) U/L ALT 20 (9-52) U/L Alkaline Phosphatase 84 (38-126) U/L Troponin I <0.012 (0.000-0.034) ng/mL Total Protein 7.7 (6.3-8.2) g/dL Albumin 4.3 (3.5-5.0) g/dL TSH (0.465-4.680) mIU/L Disposition Clinical Impression: Chronic neck pain Disposition: HOME SELF-CARE Condition: Good Instructions (If sedation given, give patient instructions): Chronic Neck Pain (DC) Additional Instructions: Liquid diet only. Is patient prescribed a controlled substance at d/c from ED?: No Referrals: Hiwot Rider MD [STAFF PHYSICIAN] - 09/01/18 Time of Disposition: 13:56
[2018-08-27 12:43] LABS: Basophils # (A) 0.1 k/uL (0-0.2); Basophils % (A) 1 %; Eosinophils # (A) 0.3 k/uL (0-0.7); Eosinophils % (A) 3 %; HCT 40.6 % (34.0-46.0); HGB 12.8 gm/dL (11.4-16.0); Lymphocytes # (A) 3.5 k/uL (1.0-4.8); Lymphocytes % (A) 32 %; MCH 28.5 pg (25.0-35.0); MCHC 31.5 g/dL (31.0-37.0); MCV 90.4 fL (80.0-100.0); Mean Platelet Volume 8.3; Monocytes # (A) 0.6 k/uL (0-1.0); Monocytes % (A) 5 %; Neutrophils % (A) 55 %; Platelet Count 368 k/uL (150-450); RBC 4.49 m/uL (3.80-5.40); RDW 15.2 % (11.5-15.5); WBC 10.9 k/uL (3.8-10.6)
[2018-08-27 12:48] LABS: ALT 20 U/L (9-52); AST 16 U/L (14-36); Albumin 4.3 g/dL (3.5-5.0); Alkaline Phosphatase 84 U/L (38-126); Anion Gap 12 mmol/L; Blood Urea Nitrogen 9 mg/dL (7-17); Calcium 9.6 mg/dL (8.4-10.2); Carbon Dioxide 24 mmol/L (22-30); Chloride 104 mmol/L (98-107); Glucose 112 mg/dL (74-99); Potassium 3.5 mmol/L (3.5-5.1); Sodium 140 mmol/L (137-145); Total Bilirubin 0.7 mg/dL (0.2-1.3); Total Protein 7.7 g/dL (6.3-8.2)
--- NOTE | 2018-08-27 13:09 | CT ---
EXAMINATION TYPE: CT angio thor/abd pel aorta DATE OF EXAM: 08/27/2018 12:52 PM COMPARISON: CT neck and chest 08/27/2018 HISTORY: shortness of breath and chest discomfort CT DLP: 1300.8 mGycm Automated exposure control for dose reduction was used. TECHNIQUE: Performed with IV Contrast, patient injected with 100 mL of Isovue 370. . FINDINGS: There is prominence of the right lobe of the thyroid which is slightly heterogenous. The ascending th oracic aorta on the current examination appears within normal limits. There is a lucency which extend s through the more anterior portion of the aorta. However, this is visualized extending out of the ao rta into the atrial appendage region. Example series 401 image [id number].. Findings are likely related to artifact. No definite dissection is identified. Remainder the aorta tapers normally throughout its visualized course. Three-D reconstructed images ar e somewhat grainy in appearance which may be related to prior contrast. Lung windows appear clear. No suspicious mediastinal adenopathy is evident. CT ABDOMEN: Liver spleen pancreas and adrenal glands are unremarkable. Kidneys appear unremarkable. A srinivasan tapers normally through the abdomen to the iliac vessels CT PELVIS: Periumbilical hernia may be present. Loops of bowel within the abdomen and pelvis are norm al. Uterus is unremarkable. Iliac vessels can be traced to the common femoral arteries IMPRESSION: NO DEFINITE DISSECTION IS IDENTIFIED. ARTIFACT APPEARS TO BE PRESENT THROUGH THE PROXIMAL ASCENDING A SRINIVASAN. THE REMAINDER OF THE AORTA IS NORMAL.
[2018-08-27 15:20] VITALS: BP 116/56; PULSE 83; RESP 19; TEMP 97.9
== END 2018-08-27 15:20 | disposition home or self-care (01) ==
LOC: EC 12:01
DX: M54.2 Cervicalgia (principal); G89.29 Other chronic pain; J45.909 Unspecified asthma, uncomplicated; E11.9 Type 2 diabetes mellitus without complications; I10 Essential (primary) hypertension; Z87.891 Personal history of nicotine dependence; Z88.0 Allergy status to penicillin; Z91.030 Bee allergy status; Z91.040 Latex allergy status; Z79.84 Long term (current) use of oral hypoglycemic drugs; Z79.891 Long term (current) use of opiate analgesic; Z79.899 Other long term (current) drug therapy; Z87.39 Personal history of other diseases of the musculoskeletal system and connective tissue; Z98.890 Other specified postprocedural states
CPT/HCPCS: 99284; 96374; 96361; 36415; 93005; 80053; 84443; 84484; 85025; 70491; 71260; 71275; 74174; J2060; Q9967 ×2

== ENCOUNTER 2018-09-11 16:36 | Observation (INO) | payer MEDICARE, OTHER ==
[2018-09-11] MEDS ORDERED: SODIUM CHLORIDE 0.9% 1,000 ML IV STA (17:07)
[2018-09-11 17:47] LABS: Basophils # (A) 0.1 k/uL (0-0.2); Basophils % (A) 1 %; Eosinophils # (A) 0.2 k/uL (0-0.7); Eosinophils % (A) 3 %; HCT 41.5 % (34.0-46.0); HGB 12.9 gm/dL (11.4-16.0); Lymphocytes # (A) 1.8 k/uL (1.0-4.8); Lymphocytes % (A) 21 %; MCH 28.4 pg (25.0-35.0); MCHC 31.1 g/dL (31.0-37.0); MCV 91.1 fL (80.0-100.0); Mean Platelet Volume 7.6; Monocytes # (A) 0.4 k/uL (0-1.0); Monocytes % (A) 5 %; Neutrophils # (A) 5.6 k/uL (1.3-7.7); Neutrophils % (A) 68 %; Platelet Count 364 k/uL (150-450); RBC 4.55 m/uL (3.80-5.40); RDW 14.6 % (11.5-15.5); WBC 8.3 k/uL (3.8-10.6)
[2018-09-11 17:56] LABS: ALT 12 U/L (9-52); AST 23 U/L (14-36); Albumin 4.4 g/dL (3.5-5.0); Alkaline Phosphatase 112 U/L (38-126); Anion Gap 10 mmol/L; Blood Urea Nitrogen 9 mg/dL (7-17); Calcium 9.4 mg/dL (8.4-10.2); Carbon Dioxide 25 mmol/L (22-30); Chloride 104 mmol/L (98-107); Glucose 95 mg/dL (74-99); Lipase 91 U/L (23-300); Magnesium 1.7 mg/dL (1.6-2.3); Sodium 139 mmol/L (137-145); Total Bilirubin 0.9 mg/dL (0.2-1.3); Total Protein 7.9 g/dL (6.3-8.2)
[2018-09-11 18:01] LABS: D-Dimer 0.28 mg/L FEU (<0.60); INR 0.9 (<1.2); Partial Thromboplastin Time 23.9 sec (22.0-30.0); Prothrombin Time 9.7 sec (9.0-12.0)
--- NOTE | 2018-09-11 18:07 | ED ---
Chest Pain HPI - General Chief Complaint: Chest Pain Stated Complaint: Chest pain Time Seen by Provider: 09/11/18 17:07 Source: patient, RN notes reviewed, old records reviewed Mode of arrival: ambulatory Limitations: no limitations - History of Present Illness Initial Comments: This is a 43-year-old female the ER for evaluation. She presents today for evaluation regards to chest pain. Patient does have history of aortic aneurysm thoracic. Patient's chest pain during ongoing for a month no change in character no modifying factors nothing making symptoms better or worse. No nausea no vomiting no shortness of breath no fevers. MD Complaint: chest pain -: month(s) Onset: during rest, during exertion, after eating Pain Location: substernal, left chest Pain Radiation: none Severity: mild Severity scale (1-10): 3 Quality: tightness Consistency: constant Improves With: nothing Worsens With: nothing Treatments Prior to Arrival: none - Related Data Home Medications Medication Instructions Recorded Confirmed amLODIPine [Norvasc] 10 mg PO DAILY 02/09/14 09/11/18 Cholecalciferol (Vitamin D3) 5,000 unit PO DAILY 10/08/17 09/11/18 [Vitamin D3] Dulaglutide [Trulicity] 0.75 mg SQ MO 10/13/17 09/11/18 Methocarbamol [Robaxin] 500 mg PO TID PRN 03/03/18 09/11/18 Atenolol [Tenormin] 50 mg PO DAILY 08/26/18 09/11/18 Montelukast Sodium [Singulair] 10 mg PO DAILY 09/11/18 09/11/18 Oxymorphone HCl [Opana ER] 40 mg PO Q12H 09/11/18 09/11/18 traZODone HCL 150 mg PO HS PRN 09/11/18 09/11/18 Previous Rx's Medication Instructions Recorded Aspirin 81 mg PO DAILY #1 chewable 09/12/18 Allergies Allergy/AdvReac Type Severity Reaction Status Date / Time Latex, Natural Rubber Allergy Rash/Hives Verified 09/11/18 21:34 Penicillins Allergy Anaphylaxis Verified 09/11/18 21:34 venom-honey bee Allergy Anaphylaxis Verified 09/11/18 21:34 [bee venom (honey bee)] Review of Systems ROS Statement: Those systems with pertinent positive or pertinent negative responses have been documented in the HPI. ROS Other: All systems not noted in ROS Statement are negative. EKG Findings - EKG Comments: EKG Findings:: EKG shows sinus rhythm rate of 70, MD 1., QRS 70, QTc 467 Past Medical History Past Medical History: Asthma, Chest Pain / Angina, Diabetes Mellitus, Fibromyalgia, GERD/Reflux, Hypertension, Pneumonia, Thyroid Disorder Additional Past Medical History / Comment(s): endometriosis,migraines, hay fever, palpitations, thyroid nodules, herniated disc, blurred vision occassionally, polycystic ovaries, hiatal hernia,"headaches like a band around head","difficulty swallowing pills", upper front dental bridges. History of Any Multi-Drug Resistant Organisms: None Reported Past Surgical History: Adenoidectomy, Bariatric Surgery, Section, Cholecystectomy, Heart Catheterization, Joint Replacement, Orthopedic Surgery, Tonsillectomy Additional Past Surgical History / Comment(s): left knee arthroscopy , left ACL, LT TKA then 2nd sx to repair, gastric bypass , lymph node removed right side of neck, laparoscopy, COLONOSCOPY/EGD Past Anesthesia/Blood Transfusion Reactions: Previous Problems w/ Anesthesia, Motion Sickness Additional Past Anesthesia/Blood Transfusion Reaction / Comment(s): bad headache and diff breathing in recovery, Past Psychological History: Anxiety, Depression, Panic Disorder Smoking Status: Former smoker Past Alcohol Use History: None Reported Past Drug Use History: Marijuana - Past Family History Mother Additional Family Medical History / Comment(s): back sx Father Family Medical History: Cancer, Myocardial Infarction ([place]), Renal Disease General Exam Limitations: no limitations General appearance: alert, in no apparent distress Head exam: Present: atraumatic, normocephalic, normal inspection Eye exam: Present: normal appearance, PERRL, EOMI. Absent: scleral icterus, conjunctival injection, periorbital swelling ENT exam: Present: normal exam, mucous membranes moist Neck exam: Present: normal inspection. Absent: tenderness, meningismus, lymphadenopathy Respiratory exam: Present: normal lung sounds bilaterally. Absent: respiratory distress, wheezes, rales, rhonchi, stridor Cardiovascular Exam: Present: regular rate, normal rhythm, normal heart sounds. Absent: systolic murmur, diastolic murmur, rubs, gallop, clicks GI/Abdominal exam: Present: soft, normal bowel sounds. Absent: distended, tenderness, guarding, rebound, rigid Extremities exam: Present: normal inspection, full ROM, normal capillary refill. Absent: tenderness, pedal edema, joint swelling, calf tenderness Back exam: Present: normal inspection Neurological exam: Present: alert, oriented X3, CN II-XII intact Psychiatric exam: Present: normal affect, normal mood Skin exam: Present: warm, dry, intact, normal color. Absent: rash Course Vital Signs 09/11/18 09/11/18 09/11/18 16:40 18:00 19:00 Temperature 98.5 F Pulse Rate 86 88 79 Respiratory 18 16 16 Rate Blood Pressure 105/74 136/72 136/72 O2 Sat by Pulse 97 97 96 Oximetry 09/11/18 20:00 Temperature Pulse Rate Respiratory 16 Rate Blood Pressure O2 Sat by Pulse Oximetry - Reevaluation(s) Reevaluation #1: 09/11/18 18:21 Medical record reviewed Chest Pain MDM - MDM 43 female the ER for evaluation. Patient presents today for evaluation of chest pain. Patient has no specific chest pain currently. CT chest is negative for acute disease labwork is normal EKG negative. Patient can be discharged home Disposition Clinical Impression: Atypical chest pain, Chest pain Disposition: ADMITTED IP TO THIS HOSP Condition: Undetermined Is patient prescribed a controlled substance at d/c from ED?: No
--- NOTE | 2018-09-11 19:12 | CT ---
EXAMINATION TYPE: CT angio chest DATE OF EXAM: 09/11/2018 6:37 PM COMPARISON: None HISTORY: Chest pain. CT DLP: 887.3 mGycm Automated exposure control for dose reduction was used. CONTRAST: CTA scan of the thorax is performed with IV Contrast, patient injected with 72ml mL of Isovue 370, pu lmonary embolism protocol. . FINDINGS: There are 3-D post processed images. The lungs are clear of infiltrate. There is no evidence of a pulmonary mass. There is no pleural effu waldemar. There are clips from bariatric surgery on the stomach. Heart size is normal. There is no perica rdial effusion. There is no mediastinal adenopathy. There are no hilar masses. I see no filling defec ts in the pulmonary arteries. Exam limited slightly by patient's size. The bony thorax is intact. IMPRESSION: NO EVIDENCE OF PULMONARY EMBOLISM. NEGATIVE EXAM.
[2018-09-11] MEDS ORDERED: HEPARIN SODIUM,PORCINE 5,000 UNIT/ML 1 ML VIAL IV ONE (19:30)
[2018-09-11] MEDS ORDERED: NITROGLYCERIN SL TABS 0.4 MG TAB SUBLINGUAL PRN (19:30)
[2018-09-11] MEDS ORDERED: HEPARIN SOD,PORK IN 0.45% NACL 25,000 UNIT in 0.45% NACL 1 250ML.BAG IV SCH (19:30)
[2018-09-11] MEDS ORDERED: HEPARIN SODIUM,PORCINE 5,000 UNIT/ML 1 ML VIAL IV PRN (19:30)
[2018-09-11] MEDS ORDERED: METHOCARBAMOL 500 MG TAB PO PRN (22:02)
[2018-09-11] MEDS ORDERED: traZODone HCL 50 MG TAB PO PRN (22:02)
[2018-09-11] MEDS: OXYMORPHONE HCL 5 MG TABLET PO SCH (22:39)
[2018-09-11] MEDS: METOPROLOL TARTRATE 25 MG TAB PO SCH (22:40)
[2018-09-12 04:13] LABS: Mean Platelet Volume 7.7; Platelet Count 319 k/uL (150-450)
[2018-09-12 04:38] LABS: Cholesterol 146 mg/dL (<200); HDL Cholesterol 78 mg/dL (40-60); LDL Cholesterol,Calculated 46 mg/dL (0-99); Triglycerides 109 mg/dL (<150)
[2018-09-12] MEDS: OXYMORPHONE HCL 5 MG TABLET PO SCH (06:20)
[2018-09-12 06:52] LABS: Glucose,Whole Blood 118 mg/dL (75-99)
[2018-09-12] MEDS: METOPROLOL TARTRATE 25 MG TAB PO SCH (08:30)
[2018-09-12] MEDS ORDERED: ATORVASTATIN 80 MG TAB PO SCH (09:00)
[2018-09-12] MEDS ORDERED: ASPIRIN 325 MG TAB PO SCH (09:00)
[2018-09-12] MEDS ORDERED: amLODIPine 10 MG TAB PO SCH (09:00)
--- NOTE | 2018-09-12 09:12 | CONS ---
CONSULTATION Mrs. Alcantara is a 43-year-old female with known history of hypertension, prior history of smoking, history of diabetes, as well as morbid obesity, who presented to the emergency room with symptoms of chest discomfort. She has been having discomfort on and off for the last month. The discomfort is right-sided, worse with deep breathing and not related to physical activity. She has no prior documented history of coronary artery disease. She has underwent cardiac catheterization, according to her about 6 years ago in [place] that was unremarkable. The patient is average in her exercise tolerance without any difficulty. She has a history of bronchial asthma. She was supposed to undergo her endoscopy recently by Dr. Rider, but apparently the procedure was not done because of some thyroid issue. Details of that are not available to me. The patient has underwent a CT scan of the aorta and that did not show any significant abnormality. It showed prominence of the right lobe of the thyroid. The patient has occasional peripheral edema and palpitation. No syncope. No PND. No orthopnea. She underwent an echocardiogram in February 2018 that revealed no evidence of significant valvular disease with a normal systolic function. Her coronary risk factors are remarkable for the history of smoking which she stopped recently, history of diabetes and hypertension. Her medications include amlodipine 10 mg daily, Tenormin 50 mg daily Trulicity, Robaxin, Claritin, Singulair, Opana, and trazodone. REVIEW OF SYSTEMS: Respiratory system: She has history of asthma. No recent wheezing or fever. GI system: She has some change in her bowel habits, but no recent nausea and vomiting. system: No dysuria or hematuria. Nervous system: No stroke or seizure. PHYSICAL EXAMINATION: 43-year-old female, alert, oriented, no apparent distress. Overweight. Blood pressure 117/70 with a heart rate in the 80s. HEAD: Normocephalic. Eyes: Sclerae anicteric. NECK good upstroke. No bruit. No jugular venous distention. LUNGS: Clear to auscultation. HEART exam S1, S2. No S3. No S4. No murmur or rub. ABDOMEN: Soft, obese, nontender. Positive bowel sounds. No megaly. EXTREMITIES: No edema. Intact distal pulses. LAB DATA: Lab data revealed a troponin less than 0.012. BUN and creatinine of 9 and 0.67. Cholesterol 146, LDL of 46, hemoglobin of 12.9. EKG revealed sinus mechanism, normal axis, intervals. No acute changes. IMPRESSION: 1. Chest discomfort atypical for ischemic heart disease, probable musculoskeletal in etiology. 2. History of hypertension. 3. History of diabetes mellitus. 4. Obesity. RECOMMENDATION: From the cardiac standpoint, she is stable. I see no evidence of active cardiac disease. The patient can be discharged home today and followed as an outpatient with Dr. Hay. Depending on her progress, she may benefit from a stress test that can be scheduled as an outpatient. Thank you for this consultation. Thank you for this consult. MMODL / IJN: [id number] /
[2018-09-12 11:36] LABS: Glucose,Whole Blood 95 mg/dL (75-99)
[2018-09-12 12:10] VITALS: BP 146/74; PULSE 87; RESP 16; TEMP 98.5
--- NOTE | 2018-09-12 13:00 | HP ---
HISTORY AND PHYSICAL HISTORY/PHYSICAL AND DISCHARGE SUMMARY: DATE OF ADMISSION: 09/11/2018 DATE OF DISCHARGE: 09/12/2018 PRESENTING COMPLAINT: Chest pain. HISTORY OF PRESENTING COMPLAINT: This is a pleasant 43-year-old patient of Dr. Amauri Hay. Chronic stable medical conditions include asthma, diabetes, GERD, hypertension, hyperthyroid. The patient also has a right thyroid mass. This is being followed by her family doctor and Dr. Montoya. She is due to have a EGD and colonoscopy by Dr. Rider. Because there are some concerns about anesthesia, hence this has been deferred. The patient has been having pain in the right infraclavicular area upper sternal area. Sometimes this pain refers to the right ear. It presented more with movement and hurts when she presses in that area. She also saw Dr. Montoya for the same. She was sent in for further evaluation. This is not related to exertion. No short of breath. No perspiration. No chills. No cough. REVIEW OF SYSTEMS: CONSTITUTIONAL: The patient has lost about 40 pounds. HEENT: None. RESPIRATORY: None. CARDIOVASCULAR: No precordial pain. GASTROINTESTINAL: Heartburn. GENITOURINARY: None. MUSCULOSKELETAL: Pain in different joints. DERMATOLOGICAL: None. HEMATOLOGICAL: None. LYMPHATICS: None. PSYCHIATRY: Slightly anxious. NEUROLOGICAL: None. PAST MEDICAL HISTORY: Of asthma, diabetes, fibromyalgia, GERD, hypertension, thyroid growth, polycystic ovaries, hiatal hernia, thyroid nodule. PAST SURGICAL HISTORY: Adenoidectomy, bariatric surgery, , cholecystectomy, tonsillectomy, left knee arthroscopy left ACL problems, left knee arthroplasty, gastric bypass, lymph nodes removed from the right side of the neck. PSYCH HISTORY: Anxiety, depression and panic disorder. SOCIAL HISTORY: The patient stopped smoking 2 months ago. Does marijuana occasionally. Lives with her son, 4 years of age. Is on disability. Not smoking for last 2 months. FAMILY HISTORY: Of kidney disease, back surgery, myocardial infarction, cancer type unknown. MEDICATIONS: Home medications: 1. Trazodone 150 mg q.h.s. p.r.n. 2. Norvasc 10 mg p.o. daily. 3. Opana ER 40 mg p.o. q.12. 4. Singulair 10 mg p.o. daily. 5. Robaxin 5 mg p.o. t.i.d. p.r.n. 6. Trulicity 0.75 mg subcu Friday. 7. Vitamin D3 5000 units p.o. daily. 8. Tenormin 50 mg p.o. daily. 9. Aspirin 81 mg p.o. daily. ALLERGIES: TO LATEX, PENICILLIN, BEE VENOM. PHYSICAL EXAMINATION: VITAL SIGNS: On examination vital signs on presentation: Temperature 98.5, pulse 86, respiratory 18, blood pressure 105/74, pulse ox 97% on room air. GENERAL APPEARANCE: Well built, BMI 49.4. Lying in bed, not in distress. EYES: Pupils equal. Conjunctivae normal. HEENT: External appearance of nose and ears normal. Oral cavity normal. NECK: JVD not raised. Mass not palpable. RESPIRATORY: Effort normal. LUNGS: Fair air entry. CARDIOVASCULAR: First and second sounds normal. No edema. ABDOMEN: Soft, nontender. Liver and spleen not palpable. LYMPHATICS: No lymph nodes palpable in the neck and axilla. PSYCHIATRY: Alert and oriented x3. Mood and affect normal. NEUROLOGICAL: Pupils equal. Cranial nerves grossly intact. Power and sensation grossly intact. MUSCULOSKELETAL: Reproducible pain at the costochondral junction in the right infraclavicular area and also in the clavicular area. INVESTIGATIONS: Troponin x3 negative. LDL 46. White count 8.3, hemoglobin 12.9. Potassium 4.0. BUN and creatinine is normal. EKG tracing personally reviewed by me shows normal sinus rhythm. Chest CTA: No evidence of PE. ASSESSMENT: 1. Right-sided right upper chest wall pain that is reproducible, worse with activity and reproducible. Also tender, not much of any cardiac characteristics, admitted to rule out a cardiac cause. 2. Intermittent asthma. 3. Diabetes mellitus type 2. 4. Chronic fibromyalgia. 5. Gastroesophageal reflux disease. 6. Essential hypertension. 7. Polycystic ovaries. 8. Hiatal hernia. 9. Thyroid nodule/mass. 10.Morbid obesity, BMI more than 40 with prior history of bypass surgery. PLAN: Cardiology was consulted. I do not think this is cardiac. Outpatient stress test may be done though the pretest probability will be low. The patient is to keep her appointment with other consultants. Home medications to continue. No change in medication. This was discussed with the patient. The patient may use a warm and cold compress in the affected area. The patient is actively losing weight. Discharge medications the same. DISPOSITION: Home. FOLLOWUP: Follow up with Dr. Amauri Hay in 3 days. Follow up with her stunt woman in 1 week and the patient is also following up with a family doctor and Dr. Montoya for the thyroid mass. Copy to Dr. Amauri Hay. This is both a history physical and discharge summary on this patient. MMODL / IJN: [id number] /
--- NOTE | 2018-09-12 20:27 | DS ---
DISCHARGE SUMMARY DATE OF ADMISSION: 09/11/2018 DATE OF DISCHARGE: 09/12/2018 Please see my H and P which is both a combination of H and P and discharge summary on this patient. MMODL / IJN: [id number] /
[2018-09-12] MEDS ORDERED: MONTELUKAST 10 MG TAB PO SCH (21:00)
== END 2018-09-12 13:42 | disposition home or self-care (01) ==
LOC: EC 16:36 → 1SOBS 19:32
PROVIDERS: ADMIT Hospitalist; ATTEND Hospitalist
DX: R07.89 Other chest pain (principal); J45.20 Mild intermittent asthma, uncomplicated; I10 Essential (primary) hypertension; I71.2 Thoracic aortic aneurysm, without rupture; E11.9 Type 2 diabetes mellitus without complications; R00.2 Palpitations; M79.7 Fibromyalgia; K21.9 Gastro-esophageal reflux disease without esophagitis; E04.2 Nontoxic multinodular goiter; E05.90 Thyrotoxicosis, unspecified without thyrotoxic crisis or storm; G43.909 Migraine, unspecified, not intractable, without status migrainosus; R60.0 Localized edema; F41.0 Panic disorder [episodic paroxysmal anxiety]; F41.9 Anxiety disorder, unspecified; F32.9 Major depressive disorder, single episode, unspecified; E28.2 Polycystic ovarian syndrome; K44.9 Diaphragmatic hernia without obstruction or gangrene; E66.01 Morbid (severe) obesity due to excess calories; Z68.42 Body mass index [BMI] 45.0-49.9, adult; Z79.891 Long term (current) use of opiate analgesic; Z79.82 Long term (current) use of aspirin; Z79.84 Long term (current) use of oral hypoglycemic drugs; Z79.899 Other long term (current) drug therapy; Z88.0 Allergy status to penicillin; Z91.030 Bee allergy status; Z91.040 Latex allergy status; Z87.891 Personal history of nicotine dependence; Z87.01 Personal history of pneumonia (recurrent); Z90.49 Acquired absence of other specified parts of digestive tract; Z98.84 Bariatric surgery status; Z82.49 Family history of ischemic heart disease and other diseases of the circulatory system; Z84.1 Family history of disorders of kidney and ureter; Z82.3 Family history of stroke; Z80.9 Family history of malignant neoplasm, unspecified
CPT/HCPCS: 96365; 96366 ×2; 96376 ×2; 96361; 99285; 36415; 93005; 85379; 83880; 80061; 80053; 83690; 83735; 84484 ×2; 85025; 85049; 85610; 85730 ×2; 71275; G0378 ×2; J1644 ×3; Q9967; 76536; 86376; 86800

== ENCOUNTER → 2018-09-11 | Outpatient (CLI) | payer MEDICARE, OTHER ==
--- NOTE | 2018-09-11 16:37 | US ---
EXAMINATION TYPE: US thyroid st tissue head/neck DATE OF EXAM: 09/11/2018 COMPARISON: Ultrasounds dating back to 11/03/2015 CLINICAL HISTORY: E04.1 Thyroid Nodule, E01.0 thyroid enlargement. GLAND SIZE: Right Lobe: 5.7 X 1.9 X 2.7 cm Overall Parenchyma: heterogenous Left Lobe: 3.7 X 1.8 X 1.4 cm Overall Parenchyma: heterogeneous Isthmus Thickness: 0.4 cm NODULES RIGHT: # of nodules measured on right: 1 1. 2.4 X 1.9 x 2.2 cm hypoechoic solid nodule at the mid pole with well-defined margins. This nodu le is taller than wide and shows . Prior size: 2.6 x 1.8 x 2.1 cm on the exam of 11/08/2016. On the exam of 11/03/2015 this measured 2. 5 x 2.2 x 1.7 cm. LEFT: # of nodules measured on left: 0 ISTHMUS: # of nodules measured in the isthmus: 0 Bilateral neck scanned, no evidence of lymphadenopathy. IMPRESSION: Stable size of the heterogenous right thyroid nodule in comparison to the prior exams of 11/08/2016 and 11/03/2015. No new thyroid nodule is seen.
[2018-09-11 22:40] LABS: Thyroid Peroxidase Antibodies 32.2 U/mL (0.0-60.0)
== END | disposition home or self-care (01) ==
LOC: RADUSWWP 15:56
PROVIDERS: ATTEND Otolaryngology
DX: E04.1 Nontoxic single thyroid nodule (principal)
CPT/HCPCS: 76536; 86376; 86800

== ENCOUNTER → 2018-10-15 | Outpatient (CLI) | payer MEDICARE, OTHER ==
--- NOTE | 2018-10-15 14:37 | FL ---
EXAMINATION: Cervical and Thoracic Esophagram DATE OF EXAM: 10/15/2018 CLINICAL INDICATION: 43-year-old female dysphasia, trouble swallowing, sticking sensation in the thro at. Patient reports prior stretching of the esophagus to the narrowing. Recurring symptoms now. Patie nt with history of gastric bypass in 2008 a right-sided thyroid nodule. COMPARISON: 11/08/2016 Total Fluoroscopy Time: 1 minute 13 seconds. Total images: 24. FINDINGS: The swallowing mechanism is normal and hypopharyngeal anatomy is preserved. The cervical and thoracic portions have a normal course and caliber and normal motility. The mucosa i s normal and no persistent filling defect is encountered. Tiny hiatal hernia. Postsurgical changes of Hal-en-Y gastric bypass. IMPRESSION: 1. Postsurgical changes of Hal-en-Y gastric bypass. Tiny hiatal hernia. 2. Otherwise, unremarkable esophagram.
== END | disposition home or self-care (01) ==
LOC: RADUSWWP 10:12
PROVIDERS: ATTEND Otolaryngology
DX: K44.9 Diaphragmatic hernia without obstruction or gangrene (principal); E04.1 Nontoxic single thyroid nodule; Z98.890 Other specified postprocedural states
CPT/HCPCS: 74220

== ENCOUNTER 2018-10-16 09:46 | Day surgery (SDC) | payer MEDICARE, OTHER ==
[2018-10-16] MEDS ORDERED: ALPRAZolam 0.5 MG TAB PO ONE (09:56)
[2018-10-16 10:07] VITALS: TEMP 98.3
[2018-10-16 10:54] LABS: Glucose,Whole Blood 101 mg/dL (75-99)
[2018-10-16 11:06] VITALS: BP 125/70; PULSE 69; RESP 14
--- NOTE | 2018-10-16 11:34 | US ---
ULTRASOUND GUIDED FNA THYROID BIOPSY: CLINICAL HISTORY: Right thyroid nodule FINDINGS: The procedure was explained to the patient. The risks, complications, benefits and alternatives were discussed and any questions were answered. Informed consent was obtained. Patient was placed supin e on the ultrasound table and prepped and draped in the usual sterile fashion. Utilizing a 25 gauge needle, five passes were made into the requested right thyroid nodule. Patient was stable throughout the procedure. Pathology is pending. All elements of maximal barrier technique were utilized. IMPRESSION: 1. Successful ultrasound guided FNA thyroid biopsy.
== END 2018-10-16 11:05 | disposition home or self-care (01) ==
LOC: RADPROMAIN 09:46
PROVIDERS: ATTEND Otolaryngology
DX: E04.1 Nontoxic single thyroid nodule (principal)
CPT/HCPCS: 10005; 88173; 88305

== ENCOUNTER 2019-03-03 10:22 | Day surgery (SDC) | payer MEDICARE, OTHER ==
[2019-03-02 13:51] VITALS: BMI 48.9
--- NOTE | 2019-03-03 09:03 | P.GSHP ---
History of Present Illness H&P Date: 03/03/19 CHIEF COMPLAINT: GERD and colon screen HISTORY OF PRESENT ILLNESS: The patient is a 43-year-old female who presents with gastroesophageal reflux disease and change in bowel habits. Upper and lower endoscopy were offered for further evaluation and management. PAST MEDICAL HISTORY: Please see list. PAST SURGICAL HISTORY: Please see list. MEDICATIONS: Please see list. ALLERGIES: Please see list. SOCIAL HISTORY: Please see list. FAMILY HISTORY: No reports of Crohn disease or ulcerative colitis. REVIEW OF ORGAN SYSTEMS: CONSTITUTIONAL: No reports of fevers or chills. PHYSICAL EXAM: VITAL SIGNS: Stable GENERAL: Well-developed pleasant in no acute distress. HEENT: No scleral icterus. Extraocular movements grossly intact. Moist buccal mucosa. NECK: Supple without lymphadenopathy. CHEST: Unlabored respirations. Equal bilateral excursions. CARDIOVASCULAR: Regular rate and rhythm. Distal 2+ pulses. ABDOMEN: Soft, nondistended. MUSCULOSKELETAL: No clubbing, cyanosis, or edema. ASSESSMENT: 1. Gastroesophageal reflux disease 2. Change in bowel habits PLAN: 1. Recommend proceeding with an upper and lower endoscopy Past Medical History Past Medical History: Asthma, Chest Pain / Angina, Diabetes Mellitus, Fibromyalgia, GERD/Reflux, Hypertension, Thyroid Disorder Additional Past Medical History / Comment(s): endometriosis,migraines, hay fever, palpitations, thyroid nodules, herniated disc, polycystic ovaries, hiatal hernia,"difficulty swallowing pills", Hx of esophageal dilation., Gastric bypass May 2008 ([facility] [place], IBS., prolapsed bladder, States elevated blood sugar after hx of steroid injection-denies diabetes now., History of Any Multi-Drug Resistant Organisms: None Reported Past Surgical History: Adenoidectomy, Bariatric Surgery, Section, Cholecystectomy, Heart Catheterization, Joint Replacement, Orthopedic Surgery, Tonsillectomy Additional Past Surgical History / Comment(s): left knee arthroscopy , left ACL, LT TKA then 2nd sx to repair, gastric bypass ( @ [facility] [place])., lymph node removed right side of neck, laparoscopy, COLONOSCOPY/EGD, thyroid biopsy x3 Past Anesthesia/Blood Transfusion Reactions: Previous Problems w/ Anesthesia, Motion Sickness Additional Past Anesthesia/Blood Transfusion Reaction / Comment(s): bad headache and diff breathing in recovery with lymph node surgery @ 20 yrs old. Past Psychological History: Anxiety, Depression, Panic Disorder Additional Psychological History / Comment(s): . Smoking Status: Former smoker Past Alcohol Use History: None Reported Additional Past Alcohol Use History / Comment(s): QUIT SMOKING MAY 2016, smoked 1 pack q 3 days, smoked approx 18 years. Past Drug Use History: Marijuana Additional Drug Use History / Comment(s): current marijuana use - Past Family History Mother Additional Family Medical History / Comment(s): back sx Father Family Medical History: Cancer, Myocardial Infarction ([place]), Renal Disease Additional Family Medical History / Comment(s): Leukemia and prostate cancer Medications and Allergies Home Medications Medication Instructions Recorded Confirmed Type amLODIPine [Norvasc] 10 mg PO DAILY 02/09/14 03/02/19 History Cholecalciferol (Vitamin D3) 5,000 unit PO DAILY 10/08/17 03/02/19 History [Vitamin D3] Dulaglutide [Trulicity] 0.75 mg SQ MO 10/13/17 03/02/19 History Atenolol [Tenormin] 50 mg PO DAILY 08/26/18 03/02/19 History Oxymorphone HCl [Opana ER] 40 mg PO Q12H 09/11/18 03/02/19 History Albuterol Inhaler [Ventolin Hfa 1 - 2 puff INHALATION RT-Q6H PRN 03/02/19 03/02/19 History Inhaler] Albuterol Nebulizer 1 dose INHALATION DIRECTED PRN 03/02/19 History Biotin 1 tab PO DAILY 03/02/19 History Loratadine [Claritin] 10 mg PO DAILY 03/02/19 03/02/19 History Multivit with Calcium,Iron,Min 1 each PO DAILY 03/02/19 03/02/19 History [Women's Multivitamin] Allergies Allergy/AdvReac Type Severity Reaction Status Date / Time Latex, Natural Rubber Allergy Rash/Hives Verified 03/02/19 13:15 Penicillins Allergy Anaphylaxis Verified 03/02/19 13:15 venom-honey bee Allergy Anaphylaxis Verified 03/02/19 13:15 [bee venom (honey bee)]
[2019-03-03 10:49] VITALS: TEMP 97.2
[2019-03-03] MEDS ORDERED: LIDOCAINE 1% 20 ML VIAL (10MG/ML) FOR IV START INTRADERMA ONE (10:50)
[2019-03-03] MEDS ORDERED: LACTATED RINGERS 1,000 ML IV ONE (10:50)
[2019-03-03] MEDS ORDERED: PROPOFOL 10 MG/ML 20 ML VIAL IV ONE (10:59)
--- NOTE | 2019-03-03 11:31 | P.PCN ---
Date of Procedure: 03/03/19 Description of Procedure: PREOPERATIVE DIAGNOSIS: Dysphagia. Epigastric abdominal pain Morbid obesity due to excess calories, BMI 49.0 POSTOPERATIVE DIAGNOSIS: Dysphagia. Epigastric abdominal pain Morbid obesity due to excess calories, BMI 49.0 Gastrojejunal stricture with chronic ulcer without perforation OPERATION: Esophagogastrojejunoscopy with balloon dilatation from 15 to 20 mm. SURGEON: Hiwot Rider MD ANESTHESIA: MAC. INDICATIONS: The patient is a 43-year-old female who presents with a history of dysphagia, including epigastric abdominal pain and nausea and vomiting. Benefits and risks of the procedure were described. Informed consent was obtained. DESCRIPTION: The patient was brought into the endoscopy suite and laid in the left lateral decubitus position. After a timeout was confirmed, the procedure was initiated. An Olympus gastroscope was passed along the posterior oropharynx down to the distal esophagus where the squamocolumnar junction was unremarkable. The gastric pouch was entered. A gastrojejunal stricture of 15 mm was found as the adult gastroscope was 9.5 mm in size. A Bright.md balloon dilator was placed through the scope. Final insufflation up to 20 mm was performed with a total of 2 minutes. The scope was advanced up to 60 cm from the incisors into the Hal limb. The mucosa of the gastrojejunal anastomosis was intact. No chronic gastrojejunal marginal ulcer was encountered. No full-thickness injury was encountered. The GI tract was desufflated. The patient tolerated the procedure well. FINDINGS: Squamocolumnar junction unremarkable Stricture of approximately 15 mm encountered. No chronic gastrojejunal ulceration encountered. Successful balloon dilatation to 20 mm. RECOMMENDATIONS: Upper endoscopy as needed
--- NOTE | 2019-03-03 11:41 | P.PCN ---
Date of Procedure: 03/03/19 Description of Procedure: PREOPERATIVE DIAGNOSIS: Change in bowel habits Family history of colon polyps POSTOPERATIVE DIAGNOSIS: Change in bowel habits Family history of colon polyps OPERATION: Colonoscopy to the ileocecal valve and appendiceal orifice. Colonoscopy with cold forceps biopsy, random for microscopic colitis SURGEON: Hiwot Rider MD. ANESTHESIA: MAC. INDICATIONS: The patient is a 43-year-old female who presents with change in bowel habits. Benefits and risks were described and informed consent was obtained. DESCRIPTION OF PROCEDURE: The patient had undergone Suprep. She had been brought into the operating room and laid in the left lateral decubitus position. After adequate intravenous sedation, the rectum was examined with 2% lidocaine jelly. No external hemorrhoids were encountered. The rectal tone was within normal limits. No lesions were palpated in the rectal vault. An Olympus colonoscope was advanced until the ileocecal valve and appendiceal orifice were clearly viewed. The prep was fair. Random biopsies obtained along the ascending colon for microscopic colitis. No scattered diverticulosis was encountered. No colonic polyps were found. Retroflexion of the scope demonstrated no internal hemorrhoids. The colon was desufflated. The patient had tolerated the procedure well. Withdrawal time was over 6 minutes. FINDINGS: Aronchick preparation quality scale 2 (1-5) No internal hemorrhoids No external prolapsed hemorrhoids. No arteriovenous malformations. No adenomatous polyps. Random biopsies obtained to address microscopic colitis RECOMMENDATIONS: Lower endoscopy as needed Plan - Discharge Summary New Discharge Prescriptions: No Action amLODIPine [Norvasc] 10 mg PO DAILY Cholecalciferol (Vitamin D3) [Vitamin D3] 5,000 unit PO DAILY Dulaglutide [Trulicity] 0.75 mg SQ MO Atenolol [Tenormin] 50 mg PO DAILY Oxymorphone HCl [Opana ER] 40 mg PO Q12H Multivit with Calcium,Iron,Min [Women's Multivitamin] 1 each PO DAILY Loratadine [Claritin] 10 mg PO DAILY Albuterol Inhaler [Ventolin Hfa Inhaler] 1 - 2 puff INHALATION RT-Q6H PRN PRN Reason: Shortness Of Breath Albuterol Nebulizer 1 dose INHALATION DIRECTED PRN PRN Reason: Shortness Of Breath Biotin 1 tab PO DAILY Discharge Medication List amLODIPine [Norvasc] 10 mg PO DAILY 02/09/14 [History] Cholecalciferol (Vitamin D3) [Vitamin D3] 5,000 unit PO DAILY 10/08/17 [History] Dulaglutide [Trulicity] 0.75 mg SQ MO 10/13/17 [History] Atenolol [Tenormin] 50 mg PO DAILY 08/26/18 [History] Oxymorphone HCl [Opana ER] 40 mg PO Q12H 09/11/18 [History] Albuterol Inhaler [Ventolin Hfa Inhaler] 1 - 2 puff INHALATION RT-Q6H PRN 03/02/19 [History] Albuterol Nebulizer 1 dose INHALATION DIRECTED PRN 03/02/19 [History] Biotin 1 tab PO DAILY 03/02/19 [History] Loratadine [Claritin] 10 mg PO DAILY 03/02/19 [History] Multivit with Calcium,Iron,Min [Women's Multivitamin] 1 each PO DAILY 03/02/19 [History] Follow up Appointment(s)/Referral(s): Hiwot Rider MD [STAFF PHYSICIAN] - 03/16/19 Patient Instructions/Handouts: Esophageal Dilation (DC) Activity/Diet/Wound Care/Special Instructions: Lower endoscopy as needed. Discharge Disposition: HOME SELF-CARE
[2019-03-03 11:46] VITALS: RESP 16
[2019-03-03 12:07] VITALS: BP 126/67; PULSE 65
== END 2019-03-03 12:33 | disposition home or self-care (01) ==
LOC: ORWHC2ENDO 10:22
PROVIDERS: ATTEND Surgery Plastic and Reconstructive Surgery
DX: K31.89 Other diseases of stomach and duodenum (principal); E66.01 Morbid (severe) obesity due to excess calories; R13.10 Dysphagia, unspecified; Z68.42 Body mass index [BMI] 45.0-49.9, adult; Z83.71 Family history of colonic polyps; Z98.84 Bariatric surgery status; Z90.49 Acquired absence of other specified parts of digestive tract; Z96.652 Presence of left artificial knee joint; Z87.891 Personal history of nicotine dependence; Z84.1 Family history of disorders of kidney and ureter; Z80.6 Family history of leukemia; Z80.42 Family history of malignant neoplasm of prostate; Z79.899 Other long term (current) drug therapy; Z88.0 Allergy status to penicillin; Z91.030 Bee allergy status; Z91.040 Latex allergy status
CPT/HCPCS: 81025; 88305; 45380; 43245; J2704; C1726

== ENCOUNTER → 2019-03-30 | Outpatient (CLI) | payer MEDICARE, OTHER ==
--- NOTE | 2019-03-31 14:27 | CT ---
EXAMINATION TYPE: CT abdomen pelvis wo con DATE OF EXAM: 03/30/2019 COMPARISON: 08/27/2018 HISTORY: 44-year-old female diverticulitis, hx of hernia CT DLP: 2541.6 mGycm. Automated exposure control for dose reduction was used. TECHNIQUE: Contiguous axial scanning of the abdomen and pelvis without IV contrast. Coronal and sagit gisell reconstructions performed. FINDINGS: Heart normal size without pericardial effusion. Lung bases clear without pleural effusion. Post surgical changes of Hal-en-Y gastric bypass. Liver enlarged at 20.1 cm. Otherwise, noncontrast appearance of the liver, adrenal glands, kidneys, spleen, and pancreas appear within normal limits. No dilated small bowel, free fluid, or free air. Scattered nonenlarged and borderline sized mesenteric lymph nodes measuring up to 7 mm are noted thro ughout both sides of the abdomen, likely reactive/post inflammatory. Mild overall stool burden. No pericolonic inflammatory change. No significant diverticular change see n. There is a small umbilical hernia containing fluid measuring 2.4 cm wide by 4.47 m long by 1.9 cm crankshaft balancer niocaudal. While this is grossly stable from 08/27/2018, there is new fluid deep to the abdominal wall fascia now measuring 2.8 x 2.6 cm, refer to axial image 57 and axial image 81. Bladder partially distended. Uterus anteverted. Both ovaries are visualized but not well delineated f rom adjacent bowel. Pelvic phlebolith. No abnormal fluid collection in the pelvis or pelvic lymphaden opathy. Bones: Degenerative changes left SI joint and mild multilevel degenerative disc disease in the lumbar spine. IMPRESSION: 1. No significant diverticular change seen within the colon. 2. Small umbilical hernia containing fluid measuring 4.4 x 2.4 cm, similar to 08/27/2018. This may rep resent inflammatory fluid in the setting of a small incarcerated umbilical hernia. New contiguous flu id now extends deep to the abdominal wall fascia measuring 2.8 x 2.6 cm. 3. Hepatomegaly up to 20.1 cm. Status post Hal-en-Y gastric bypass.
== END | disposition home or self-care (01) ==
LOC: RADCTMAIN 15:57
PROVIDERS: ATTEND Surgery Plastic and Reconstructive Surgery
DX: K42.9 Umbilical hernia without obstruction or gangrene (principal); R16.0 Hepatomegaly, not elsewhere classified; Z98.84 Bariatric surgery status
CPT/HCPCS: 74176

== ENCOUNTER 2019-05-20 09:01 | Day surgery (SDC) | payer MEDICARE, OTHER ==
[2019-04-22 13:46] VITALS: BMI 47.1
--- NOTE | 2019-05-19 17:59 | P.GSHP ---
History of Present Illness H&P Date: 05/20/19 CHIEF COMPLAINT: Incisional hernia. HISTORY OF PRESENT ILLNESS: The patient is a 44-year-old female who presents with a history of swelling along the lower abdomen Findings were consistent with possible incisional hernia. Now she presents for further evaluation and management. PAST MEDICAL HISTORY: Please see list. PAST SURGICAL HISTORY: Please see list. MEDICATIONS: Please see list. ALLERGIES: Please see list. SOCIAL HISTORY: No illicit drug use FAMILY HISTORY: No reports of Crohn disease or ulcerative colitis. REVIEW OF ORGAN SYSTEMS: CONSTITUTIONAL: No reports of fevers or chills. GI: Denies any blood in stools or constipation. PHYSICAL EXAM: VITAL SIGNS: Stable GENERAL: Well-developed pleasant female in no acute distress. HEENT: No scleral icterus. Extraocular movements grossly intact. Moist buccal mucosa. NECK: Supple without lymphadenopathy. CHEST: Unlabored respirations. Equal bilateral excursions. CARDIOVASCULAR: Regular rate and rhythm. Distal 2+ pulses. ABDOMEN: Soft, nondistended. Tender along the lower abdomen. Protuberant. MUSCULOSKELETAL: No clubbing, cyanosis, or edema. ASSESSMENT: 1. Incisional ventral hernia. 2. Morbid obesity, BMI 47.1 PLAN: 1. Recommend proceeding with robotic ventral hernia repair with mesh. 2. Benefits and risks of surgical intervention was discussed including possibility of open technique. 3. DVT prophylaxis. 4. Antibiotic prophylaxis. Past Medical History Past Medical History: Asthma, Chest Pain / Angina, Fibromyalgia, GERD/Reflux, Hypertension, Thyroid Disorder Additional Past Medical History / Comment(s): endometriosis,migraines, hay fever, palpitations, thyroid nodules, herniated disc, polycystic ovaries, hiatal hernia,"difficulty swallowing pills", Hx of esophageal dilation., Gastric bypass May 2008 ([facility] [place], IBS., prolapsed bladder, States elevated blood sugar after hx of steroid injection-denies diabetes History of Any Multi-Drug Resistant Organisms: None Reported Past Surgical History: Adenoidectomy, Bariatric Surgery, Section, Cholecystectomy, Heart Catheterization, Joint Replacement, Orthopedic Surgery, Tonsillectomy Additional Past Surgical History / Comment(s): left knee arthroscopy , left ACL, LT TKA then 2nd sx to repair, gastric bypass ( @ [facility] [place])., lymph node removed right side of neck, laparoscopy, COLONOSCOPY/EGD, thyroid biopsy x3 Past Anesthesia/Blood Transfusion Reactions: Previous Problems w/ Anesthesia, Family History of Problems w/ Anesthesia, Motion Sickness Additional Past Anesthesia/Blood Transfusion Reaction / Comment(s): bad headache and diff breathing in recovery with lymph node surgery @ 20 yrs old. Past Psychological History: Anxiety, Depression, Panic Disorder Additional Psychological History / Comment(s): . Smoking Status: Former smoker Past Alcohol Use History: None Reported Additional Past Alcohol Use History / Comment(s): QUIT SMOKING MAY 2016, smoked 1 pack q 3 days, smoked approx 18 years. Past Drug Use History: Marijuana Additional Drug Use History / Comment(s): current marijuana use, edibles - Past Family History Mother Additional Family Medical History / Comment(s): back sx Father Family Medical History: Cancer, Myocardial Infarction ([place]), Renal Disease Additional Family Medical History / Comment(s): Leukemia and prostate cancer Medications and Allergies Home Medications Medication Instructions Recorded Confirmed Type amLODIPine [Norvasc] 10 mg PO DAILY 02/09/14 05/14/19 History Cholecalciferol (Vitamin D3) 5,000 unit PO DAILY 10/08/17 05/14/19 History [Vitamin D3] Dulaglutide [Trulicity] 0.75 mg SQ MO 10/13/17 05/14/19 History Atenolol [Tenormin] 50 mg PO DAILY 08/26/18 05/14/19 History Oxymorphone HCl [Opana ER] 40 mg PO Q12H 09/11/18 05/14/19 History Albuterol Inhaler [Ventolin Hfa 1 - 2 puff INHALATION RT-Q6H PRN 03/02/19 05/14/19 History Inhaler] Albuterol Nebulizer 1 dose INHALATION DIRECTED PRN 03/02/19 05/14/19 History Biotin 1 tab PO DAILY 03/02/19 05/14/19 History Multivit with Calcium,Iron,Min 1 each PO DAILY 03/02/19 05/14/19 History [Women's Multivitamin] traZODone HCL 50 - 150 mg PO HS PRN 05/14/19 05/14/19 History Allergies Allergy/AdvReac Type Severity Reaction Status Date / Time Latex, Natural Rubber Allergy Rash/Hives Verified 04/22/19 13:25 Penicillins Allergy Anaphylaxis Verified 04/22/19 13:25 venom-honey bee Allergy Anaphylaxis Verified 04/22/19 13:25 [bee venom (honey bee)]
[~2019-05-20 09:01] MED LIST changes: +ACETAMINOPHEN IV (For NPO) 1,000 MG in EMPTY BAG 1 BAG IVPB ONE; +ACETAMINOPHEN TAB 500 MG TAB PO STA; +DEXAMETHASONE SOD PHOSPHATE 10 MG/ML 1 ML VIAL IV ONE; +GABAPENTIN 300 MG CAP PO STA; +HEPARIN SODIUM,PORCINE 5,000 UNIT/ML 1 ML VIAL SQ ONE; -IV FLUID CONTINUATION 400 ML IV ONE; +MIDAZOLAM 2 MG/2 ML VIAL IV PRN; +ONDANSETRON 4 MG/2 ML VIAL IVP ONE; +SCOPOLAMINE 1.5MG/72HR PATCH TRANSDERM ONE; +SCOPOLAMINE 1.5MG/72HR PATCH TRANSDERM STA; +ceFAZolin 3 GM in SODIUM CHLORIDE 0.9% 100 ML IVPB ONE
[2019-05-20] MEDS ORDERED: fentaNYL (PF) 50 MCG/ML 2 ML AMP IVP ONE (10:06)
[2019-05-20 10:26] LABS: Basophils # (A) 0.2 k/uL (0-0.2); Basophils % (A) 2 %; Eosinophils # (A) 0.3 k/uL (0-0.7); Eosinophils % (A) 3 %; HCT 40.7 % (34.0-46.0); HGB 13.1 gm/dL (11.4-16.0); Hypochromasia Slight; Lymphocytes # (A) 3.9 k/uL (1.0-4.8); Lymphocytes % (A) 39 %; MCH 30.4 pg (25.0-35.0); MCHC 32.2 g/dL (31.0-37.0); MCV 94.3 fL (80.0-100.0); Mean Platelet Volume 8.8; Monocytes # (A) 0.6 k/uL (0-1.0); Monocytes % (A) 6 %; Neutrophils # (A) 4.9 k/uL (1.3-7.7); Neutrophils % (A) 48 %; Platelet Count 343 k/uL (150-450); RBC 4.32 m/uL (3.80-5.40); RDW 14.1 % (11.5-15.5)
[2019-05-20] MEDS ORDERED: LIDOCAINE 1% INJ 10MG/ML (20 ML MDV) ONE (10:58)
[2019-05-20] MEDS ORDERED: NEOSTIGMINE 1 MG/ML 10 ML VIAL ONE (10:58)
[2019-05-20] MEDS ORDERED: ROCURONIUM BROMIDE 10 MG/ML 10 ML VIAL IV ONE (10:58)
[2019-05-20] MEDS ORDERED: SUCCINYLCHOLINE CHLORIDE 100 MG/5 ML SYR IV ONE (10:58)
[2019-05-20] MEDS ORDERED: fentaNYL (PF) 50 MCG/ML 2 ML AMP ONE (10:58)
[2019-05-20] MEDS ORDERED: HYDROmorphone (PF) 1 MG/ML ONE (10:58)
[2019-05-20] MEDS ORDERED: ROPIVACAINE 5 MG/ML 30 ML VIAL ONE (10:58)
[2019-05-20] MEDS ORDERED: GLYCOPYRROLATE 0.2 MG/ML 2 ML VIAL ONE (10:58)
[2019-05-20] MEDS ORDERED: PROPOFOL 10 MG/ML 20 ML VIAL IV ONE (10:58)
[2019-05-20] MEDS ORDERED: MIDAZOLAM 2 MG/2 ML VIAL ONE (10:58)
[2019-05-20] MEDS ORDERED: BUPIVACAINE (PF) 0.25% 30 ML VIAL SQ ONE ×2 (11:26→11:39)
[2019-05-20] MEDS ORDERED: LACTATED RINGERS 1,000 ML IV ONE (11:39)
--- NOTE | 2019-05-20 12:29 | P.ANPRN ---
Procedure Note - Anesthesia - Nerve Block Performed Right Rectus Abdominis Single Time Out Performed: Yes (1004) Date of Procedure: 05/20/19 Procedure Start Time: 10:05 Procedure Stop Time: 10:09 Location of Patient: PreOp Indication: Acute Post-Operative Pain, Requested by Surgeon Specifically requested for management of pain by DrJamaal: Hiwot Rider Sedation Type: Sedate with meaningful contact maintained Preparation: Sterile Prep Position: Supine Catheter: None Needle Types: Pajunk Needle Gauge: 20 Ultrasound used to visualize needle placement: Yes Ultrasound used to observe medication spread: Yes Injectate: 0.5% Ropivacaine (see comment for volume) (15cc) Blood Aspirated: No Pain Paresthesia on Injection Noted: No Resistance on Injection: Normal Image Stored and Saved: Yes Events: Uneventful and Well Tolerated Left Transversus Abdominis Single Time Out Performed: Yes (1004) Date of Procedure: 05/20/19 Procedure Start Time: 10:10 Procedure Stop Time: 10:14 Location of Patient: PreOp Indication: Acute Post-Operative Pain, Requested by Surgeon Specifically requested for management of pain by DrJamaal: Hiwot Rider Sedation Type: Sedate with meaningful contact maintained Preparation: Sterile Prep Position: Supine Needle Types: Pajunk Needle Gauge: 20 Ultrasound used to visualize needle placement: Yes Ultrasound used to observe medication spread: Yes Injectate: 0.5% Ropivacaine (see comment for volume) (15cc) Blood Aspirated: No Pain Paresthesia on Injection Noted: No Resistance on Injection: Normal Image Stored and Saved: Yes Events: Uneventful and Well Tolerated
[2019-05-20 13:11] VITALS: TEMP 98.3
[2019-05-20] MEDS: HYDROmorphone 0.5 MG/0.5 ML SYRINGE IVP PRN ×5 (13:16→13:56)
--- NOTE | 2019-05-20 13:26 | P.OP ---
Date of Procedure: 05/20/19 Description of Procedure: SURGEON: HIWOT RIDER MD PREOPERATIVE DIAGNOSES: 1. Initial incarcerated umbilical hernia 2. Personal history of multiple abdominal wall hernia 3. Hypertensive heart disease 4. Gastroesophageal reflux disease 5. Hyperlipidemia 6. Diabetes type 2, [id number] 7. Fibromyalgia 8. Chronic pain syndrome 9. Morbid obesity due to excess calories, BMI 48.9 POSTOPERATIVE DIAGNOSES: 1. Initial incarcerated umbilical hernia, 1 cm 2. Initial incarcerated incisional hernia, epigastrium, 2 cm 3. Hypertensive heart disease 4. Gastroesophageal reflux disease 5. Hyperlipidemia 6. Diabetes type 2, vug-hzwvybs-qvebsbkad 7. Fibromyalgia 8. Chronic pain syndrome 9. Morbid obesity due to excess calories, BMI 48.9 OPERATION: 1. Robotic-assisted da Keegan Xi laparoscopic repair of initial incarcerated epigastric incisional hernia with mesh, ventralight ST mesh 11.4 cm 2. Robotic-assisted da Keegan Xi laparoscopic repair of initial incarcerated umbilical hernia with mesh, ventralight ST mesh 11.4 cm Anesthesia: GETA, regional, local Estimated Blood Loss (ml): 5 Pathology: 1. Incarcerated umbilical hernia defect 2. Incarcerated upper midline ventral hernia defect COMPLICATIONS: None. Operative Findings: 1. Upper midline epigastric ventral hernia defect 5 x 2 cm 2. Umbilical hernia defect 2 x 1 cm 3. Fascia repaired using #1 V-lock suture 4. Console time 42 minutes INDICATIONS: The patient is a 44-year-old female who presents with a personal history of multiple abdominal wall hernias. Surgical intervention with laparoscopic versus robotic and open techniques were reviewed. Placement of mesh was also reviewed. Benefits and risks were thoroughly described. Informed consent was obtained. DESCRIPTION OF PROCEDURE: The patient was brought into the operating room and laid in supine position. After general induction, the abdomen had been prepped and draped in standard sterile fashion. Ioban draping was also placed. Prior to incision, a timeout protocol was confirmed with surgical team regarding the patient's name including procedures to be performed. The robot was primed prior to the procedure. A field block using local anesthetic was placed along hernia site including the proposed port sites. Initial incision was made with an #11 blade along the left upper quadrant. A 0 degree 5 mm laparoscopic trocar entry was performed and insufflated. Three 8 mm ports were placed along the left lateral abdominal wall under direct localization after exchanging the 5-mm for an 8 mm port. Placements of the ports were 15 cm from the target anatomy and 10 cm apart. An accessory 12 mm port was placed at the right upper quadrant for exchange of mesh including sutures. The da Keegan Xi robot was previously primed, prepped and draped then docked from the right side of the patient onto the left side of the patient. I then sat at the robot Da Keegan Xi console where working arms of the robot including Bovie cautery connected to robotic scissors, needle tractor trailer driver, and graspers placed by the ex assistant/program director. Incarcerated falciform ligament contents were found along the upper midline defect. At the umbilicus, fluid was expressed from a 1 cm defect. The defects were reduced with preperitoneal fat including the falciform ligament at the upper midline defect. Two distinct fascial defects were found: Upper midline defect 5 x 2 cm and umbilical hernia defect 2 x 1 cm. The incarcerated contents were reduced as the peritoneal fat was cleaned from the abdominal wall. Next, hemostasis was checked with cautery. The hernia defects were oversewn using #1 nonabsorbable V-lock suture for epigastric defect with fascial imbrication x 2. Next, ventralight ST mesh 11.4 cm was placed with the rough side towards the abdominal wall as to cover the epigastric and separately of the umbilical defect. 2-0 VLOC 9 inch sutures were used to fixate the mesh. A final endoscopic imaging was obtained. All instruments and pneumoperitoneum were evacuated from the abdominal cavity. The da Keegan Xi robot was undocked from the patient. I re-scrubbed into the case for closure of incisions. The fascia of the 12-mm port was probed and less than 8-mm in size. The incisions were reapproximated using 4-0 Monocryl in an interrupted subcuticular fashion. Liquid glue was applied to the skin after cleansing the skin with normal saline and dilute hydrogen peroxide. An abdominal binder was placed. At the end of the procedure, needle, sponge, and instrument count had been verified correct by ophthalmic surgical assistant. The patient was taken to the postanesthesia care unit in stable condition. Plan - Discharge Summary Discharge Rx Participant: No New Discharge Prescriptions: New Naproxen [EC-Naproxen] 500 mg PO BID #30 tablet. Omeprazole [PriLOSEC] 40 mg PO DAILY #14 cap Acetaminophen Tab [Tylenol Tab] 1,000 mg PO Q6H PRN #30 tablet PRN Reason: Pain Continue amLODIPine [Norvasc] 10 mg PO DAILY Cholecalciferol (Vitamin D3) [Vitamin D3] 5,000 unit PO DAILY Dulaglutide [Trulicity] 0.75 mg SQ MO Atenolol [Tenormin] 50 mg PO DAILY Oxymorphone HCl [Opana ER] 40 mg PO Q12H Multivit with Calcium,Iron,Min [Women's Multivitamin] 1 each PO DAILY Albuterol Inhaler [Ventolin Hfa Inhaler] 1 - 2 puff INHALATION RT-Q6H PRN PRN Reason: Shortness Of Breath Albuterol Nebulizer 1 dose INHALATION DIRECTED PRN PRN Reason: Shortness Of Breath Biotin 1 tab PO DAILY traZODone HCL 50 - 150 mg PO HS PRN PRN Reason: Insomnia Discharge Medication List amLODIPine [Norvasc] 10 mg PO DAILY 02/09/14 [History] Cholecalciferol (Vitamin D3) [Vitamin D3] 5,000 unit PO DAILY 10/08/17 [History] Dulaglutide [Trulicity] 0.75 mg SQ MO 10/13/17 [History] Atenolol [Tenormin] 50 mg PO DAILY 08/26/18 [History] Oxymorphone HCl [Opana ER] 40 mg PO Q12H 09/11/18 [History] Albuterol Inhaler [Ventolin Hfa Inhaler] 1 - 2 puff INHALATION RT-Q6H PRN 03/02/19 [History] Albuterol Nebulizer 1 dose INHALATION DIRECTED PRN 03/02/19 [History] Biotin 1 tab PO DAILY 03/02/19 [History] Multivit with Calcium,Iron,Min [Women's Multivitamin] 1 each PO DAILY 03/02/19 [History] traZODone HCL 50 - 150 mg PO HS PRN 05/14/19 [History] Acetaminophen Tab [Tylenol Tab] 1,000 mg PO Q6H PRN #30 tablet 05/20/19 [Rx] Naproxen [EC-Naproxen] 500 mg PO BID #30 tablet. 05/20/19 [Rx] Omeprazole [PriLOSEC] 40 mg PO DAILY #14 cap 05/20/19 [Rx] Follow up Appointment(s)/Referral(s): Hiwot Rider MD [STAFF PHYSICIAN] - 05/25/19 Patient Instructions/Handouts: *Surgery [facility] - Scopalamine Patch Instructions, Abdominal Binder (DC), Laparoscopic Herniorrhaphy (IP), Ventral Hernia Repair (GEN) Activity/Diet/Wound Care/Special Instructions: Wear abdominal binder at all times No lifting over 4 pounds in 4 weeks until Jun 20. August shower. No bath tub soaks for two weeks until Jun 20. Diet as tolerated. No driving while on narcotics. Use Tylenol and ibuprofen scheduled for the next 24-48 hours for best pain relief. Use ice along incisions for the today to prevent swelling. Discharge Disposition: HOME SELF-CARE
[2019-05-20] MEDS: fentaNYL (PF) 50 MCG/ML 2 ML AMP IVP ONE ×2 (13:30→13:34)
[2019-05-20 14:32] VITALS: RESP 20
[2019-05-20 15:54] VITALS: BP 126/85; PULSE 74
== END 2019-05-20 15:50 | disposition home or self-care (01) ==
LOC: OR 09:01
PROVIDERS: ATTEND Surgery Plastic and Reconstructive Surgery
DX: K43.0 Incisional hernia with obstruction, without gangrene (principal); K42.0 Umbilical hernia with obstruction, without gangrene; I11.9 Hypertensive heart disease without heart failure; E78.5 Hyperlipidemia, unspecified; E11.9 Type 2 diabetes mellitus without complications; M79.7 Fibromyalgia; E66.01 Morbid (severe) obesity due to excess calories; Z68.42 Body mass index [BMI] 45.0-49.9, adult; G89.4 Chronic pain syndrome; K21.9 Gastro-esophageal reflux disease without esophagitis; Z79.899 Other long term (current) drug therapy; Z88.0 Allergy status to penicillin; Z91.040 Latex allergy status; J45.909 Unspecified asthma, uncomplicated; Z87.891 Personal history of nicotine dependence; Z96.652 Presence of left artificial knee joint; Z90.89 Acquired absence of other organs; Z90.49 Acquired absence of other specified parts of digestive tract; Z98.84 Bariatric surgery status; E04.9 Nontoxic goiter, unspecified; Z91.030 Bee allergy status; G43.909 Migraine, unspecified, not intractable, without status migrainosus; K58.9 Irritable bowel syndrome, unspecified; F41.9 Anxiety disorder, unspecified; F32.9 Major depressive disorder, single episode, unspecified; F41.0 Panic disorder [episodic paroxysmal anxiety]; Z82.49 Family history of ischemic heart disease and other diseases of the circulatory system; Z80.42 Family history of malignant neoplasm of prostate; Z80.6 Family history of leukemia; M51.36 Other intervertebral disc degeneration, lumbar region; Z87.440 Personal history of urinary (tract) infections; E28.2 Polycystic ovarian syndrome; E55.9 Vitamin D deficiency, unspecified; E73.9 Lactose intolerance, unspecified; Z83.3 Family history of diabetes mellitus; K22.9 Disease of esophagus, unspecified
CPT/HCPCS: 64488; 88305; 85025; 88302; 49655; 49653; C1781; J2250; J1644; J1100; J2710; J0690; J2405; J2001; J3010; J1170 ×2; J2795; J0330; J2704

== ENCOUNTER → 2020-10-05 | Outpatient (CLI) | payer MEDICARE, OTHER ==
--- NOTE | 2020-10-05 17:07 | US ---
EXAMINATION TYPE: US pelvis complete transvag DATE OF EXAM: 10/05/2020 COMPARISON: ct 03/30/2019 CLINICAL HISTORY: R10.2 PELVIC PAIN. Difficult and limited exam due to patient body habitus TECHNIQUE: . Transabdominal sonographic images of the pelvis were acquired. Transvaginal sonographi c images were medically necessary to better assess the following anatomy: Uterus/ovaries Date of LMP: 2 weeks ago EXAM MEASUREMENTS: Uterus: 8.8 x 5.7 x 5.1 cm Endometrial Stripe: 0.4 cm Right Ovary: 2.8 x 1.7 x 1.5 cm Left Ovary: 2.7 x 1.9 x 1.7 cm 1. Uterus: Anteverted wnl. This is smaller than prior study. 2. Endometrium: wnl 3. Right Ovary: wnl. Previous cyst has resolved. 4. Left Ovary: wnl 5. Bilateral Adnexa: wnl 6. Posterior cul-de-sac: wnl IMPRESSION: 1. Normal pelvic ultrasound
== END | disposition home or self-care (01) ==
LOC: RADUSWWP 13:46
PROVIDERS: ATTEND Obstetrics & Gynecology
DX: R10.2 Pelvic and perineal pain (principal)
CPT/HCPCS: 76830; 76856

== ENCOUNTER → 2020-11-08 | Outpatient (CLI) | payer MEDICARE, OTHER ==
--- NOTE | 2020-11-09 08:17 | US ---
EXAMINATION TYPE: US thyroid st tissue head/neck DATE OF EXAM: 11/08/2020 COMPARISON: US CLINICAL HISTORY: E04.1 thyroid nodule. Thyroid nodule. Hx multiple thyroid biopsies. GLAND SIZE: Right Lobe: 5.8 x 1.9 x 2.5 cm Overall Parenchyma: heterogenous Left Lobe: 5.0 x 1.9 x 1.5 cm Overall Parenchyma: heterogeneous Isthmus Thickness: 0.31 cm NODULES RIGHT: # of nodules measured on right: 1 1. 2.5 X 2.0 x 2.3 cm, mid-lower, solid or almost completely solid, heterogeneous nodule, which is taller than wide, with smooth margins, without echogenic foci. Prior size: 2.4 x 1.8 x 2.2 cm LEFT: # of nodules measured on left: 0 ISTHMUS: # of nodules measured in the isthmus: 0 Bilateral neck scanned. Hypoechoic area with hyperechoic center and vascular hilum seen within the left neck: 2.8 x 1.5 x 0.7 cm with apparent cortical thickening. IMPRESSION: Left neck lymphadenopathy with multiple lymph nodes demonstrating cortical thickening. CT with contra st may be helpful for further evaluation. Unchanged right thyroid nodule. 2017 ACR TI-RADS LEVEL: TR-RADS 4 - Moderately Suspicious: Follow if > 1 cm, FNA if > 1.5 cm *Highest TI-RADS level nodule reported
== END | disposition home or self-care (01) ==
LOC: RADUSWWP 17:08
PROVIDERS: ATTEND Family Medicine
DX: E04.1 Nontoxic single thyroid nodule (principal); R59.0 Localized enlarged lymph nodes
CPT/HCPCS: 76536

== ENCOUNTER 2021-04-26 23:56 | Emergency (ER) | payer MEDICARE, OTHER ==
[2021-04-27 00:26] VITALS: BP 145/82; PULSE 105; TEMP 98.8
[2021-04-27] MEDS ORDERED: DEXAMETHASONE SOD PHOSPHATE 10 MG/ML 1 ML VIAL IM STA (01:54)
[2021-04-27] MEDS ORDERED: ACET/COD 300 MG/30 MG STARTER PACK 6 TAB BTL PO STA (01:54)
[2021-04-27] MEDS ORDERED: AZITHROMYCIN 500 MG TAB PO STA (01:54)
--- NOTE | 2021-04-27 01:56 | ED ---
General Adult HPI - General Chief complaint: ENT Stated complaint: Throat pain, cough Time Seen by Provider: 04/27/21 00:59 Source: patient Mode of arrival: ambulatory Limitations: no limitations - History of Present Illness Initial comments: 46-year-old female patient presents to the emergency department today for evaluation of sore throat and right-sided neck swelling. Patient states she's been sick for the last couple of weeks with sore throat. States she went to [facility] and had a rapid strep and COVID-19 which were negative. States that she later found that her strep culture had come back positive. They started her on clindamycin. States she has taken 5 days of medication she is not feeling any better. States over the last few days she has developed more swelling to the right side of her neck. She denies fever or chills. Denies nausea or vomiting. States she is able to swallow. - Related Data Home Medications Medication Instructions Recorded Confirmed amLODIPine [Norvasc] 10 mg PO DAILY 02/09/14 05/20/19 Cholecalciferol (Vitamin D3) 5,000 unit PO DAILY 10/08/17 05/20/19 [Vitamin D3] Dulaglutide [Trulicity] 0.75 mg SQ MO 10/13/17 05/20/19 atenoloL [Tenormin] 50 mg PO DAILY 08/26/18 05/20/19 Oxymorphone HCl [Opana ER] 40 mg PO Q12H 09/11/18 05/20/19 Albuterol Inhaler (Mhu) [Ventolin 1 - 2 puff INHALATION RT-Q6H PRN 03/02/19 05/20/19 Hfa Inhaler (Mhu)] Albuterol Nebulizer 1 dose INHALATION DIRECTED PRN 03/02/19 05/20/19 Biotin 1 tab PO DAILY 03/02/19 05/20/19 Multivit with Calcium,Iron,Min 1 each PO DAILY 03/02/19 05/20/19 [Women's Multivitamin] traZODone HCL 50 - 150 mg PO HS PRN 05/14/19 05/20/19 Previous Rx's Medication Instructions Recorded Acetaminophen Tab [Tylenol Tab] 1,000 mg PO Q6H PRN #30 tablet 05/20/19 Naproxen [EC-Naproxen] 500 mg PO BID #30 tablet.dr 05/20/19 Omeprazole [PriLOSEC] 40 mg PO DAILY #14 cap 05/20/19 Azithromycin [Zithromax] 500 mg PO DAILY 5 Days #5 tab 04/27/21 Allergies Allergy/AdvReac Type Severity Reaction Status Date / Time Latex, Natural Rubber Allergy Rash/Hives Verified 04/27/21 00:20 Penicillins Allergy Anaphylaxis Verified 04/27/21 00:20 venom-honey bee Allergy Anaphylaxis Verified 04/27/21 00:20 [bee venom (honey bee)] Review of Systems ROS Statement: Those systems with pertinent positive or pertinent negative responses have been documented in the HPI. ROS Other: All systems not noted in ROS Statement are negative. Past Medical History Past Medical History: Asthma, Chest Pain / Angina, Fibromyalgia, GERD/Reflux, Hypertension, Thyroid Disorder Additional Past Medical History / Comment(s): endometriosis,migraines, hay fever, palpitations, thyroid nodules, herniated disc, polycystic ovaries, hiatal hernia,"difficulty swallowing pills", Hx of esophageal dilation., Gastric bypass May 2008 ([facility] [place], IBS., prolapsed bladder, States elevated blood sugar after hx of steroid injection-denies diabetes History of Any Multi-Drug Resistant Organisms: None Reported Past Surgical History: Adenoidectomy, Bariatric Surgery, Section, Cholecystectomy, Heart Catheterization, Joint Replacement, Orthopedic Surgery, Tonsillectomy Additional Past Surgical History / Comment(s): left knee arthroscopy , left ACL, LT TKA then 2nd sx to repair, gastric bypass ( @ [facility] [place])., lymph node removed right side of neck, laparoscopy, COLONOSCOPY/EGD, thyroid biopsy x3 Past Anesthesia/Blood Transfusion Reactions: Previous Problems w/ Anesthesia, Family History of Problems w/ Anesthesia, Motion Sickness Additional Past Anesthesia/Blood Transfusion Reaction / Comment(s): bad headache and diff breathing in recovery with lymph node surgery @ 20 yrs old. Past Psychological History: Anxiety, Depression, Panic Disorder Smoking Status: Current some day smoker Past Alcohol Use History: Occasional Past Drug Use History: Marijuana - Past Family History Mother Additional Family Medical History / Comment(s): back sx Father Family Medical History: Cancer, Myocardial Infarction ([place]), Renal Disease Additional Family Medical History / Comment(s): Leukemia and prostate cancer General Exam Limitations: no limitations General appearance: alert, in no apparent distress, other (This is a well- developed, well-nourished adult female patient in no acute distress.) Eye exam: Present: normal appearance, PERRL, EOMI. Absent: scleral icterus, conjunctival injection, periorbital swelling ENT exam: Present: normal oropharynx, mucous membranes moist, other (Tonsils are absent). Absent: normal exam Neck exam: Present: lymphadenopathy (Right anterior cervical). Absent: normal inspection, tenderness, meningismus Respiratory exam: Present: normal lung sounds bilaterally. Absent: respiratory distress, wheezes, rales, rhonchi, stridor Cardiovascular Exam: Present: regular rate, normal rhythm, normal heart sounds. Absent: systolic murmur, diastolic murmur, rubs, gallop, clicks GI/Abdominal exam: Present: soft, normal bowel sounds. Absent: distended, tenderness, guarding, rebound, rigid Neurological exam: Present: alert, oriented X3, CN II-XII intact Psychiatric exam: Present: normal affect, normal mood Skin exam: Present: warm, dry, intact, normal color. Absent: rash Course Vital Signs 04/27/21 04/27/21 00:20 02:25 Temperature 98.8 F Pulse Rate 105 H Respiratory 18 16 Rate Blood Pressure 145/82 O2 Sat by Pulse 99 Oximetry Medical Decision Making - Medical Decision Making 46-year-old female patient presents to the emergency department today for evaluation of persistent sore throat and right-sided neck swelling after being diagnosed with strep pharyngitis. Physical examination did reveal absent tonsils with a normal-appearing throat. She did have right anterior cervical lymphadenopathy. Patient is currently taking clindamycin, we will stop this and start azithromycin. She is penicillin allergic. She'll be given dose of Decadron here. She is given pain medication for home. She is instructed to follow-up with her primary care physician for recheck in 1-2 days. Return parameters were discussed in detail. She verbalizes understanding and agrees with this plan. My attending is Dr. Dawn. Disposition Clinical Impression: Strep pharyngitis, Lymphadenopathy Disposition: HOME SELF-CARE Condition: Good Instructions (If sedation given, give patient instructions): Strep Throat (ED), Lymphadenopathy (ED) Additional Instructions: Take medications as directed. Stop the clindamycin and start to new medications. Follow-up with your primary care physician for recheck in 1-2 days. Return for any new, worsening, or concerning symptoms. Prescriptions: Azithromycin [Zithromax] 500 mg PO DAILY 5 Days #5 tab Is patient prescribed a controlled substance at d/c from ED?: No Referrals: Avani Winter MD [Primary Care Provider] - 1-2 days Time of Disposition: 01:56
[2021-04-27 02:26] VITALS: RESP 16
== END 2021-04-27 02:22 | disposition home or self-care (01) ==
LOC: EC 23:56
DX: J02.0 Streptococcal pharyngitis (principal); R59.1 Generalized enlarged lymph nodes; I10 Essential (primary) hypertension; J45.909 Unspecified asthma, uncomplicated; F32.A Depression, unspecified; F41.9 Anxiety disorder, unspecified; M79.7 Fibromyalgia; K21.9 Gastro-esophageal reflux disease without esophagitis; F17.200 Nicotine dependence, unspecified, uncomplicated; F12.90 Cannabis use, unspecified, uncomplicated; Z79.51 Long term (current) use of inhaled steroids; Z79.1 Long term (current) use of non-steroidal anti-inflammatories (NSAID); Z79.899 Other long term (current) drug therapy; Z88.0 Allergy status to penicillin
CPT/HCPCS: 99283; 96372; J1100

== ENCOUNTER 2021-09-19 08:13 | Emergency (ER) | payer MEDICARE, OTHER ==
[2021-09-19 08:20] VITALS: BP 133/81; TEMP 98.2
[2021-09-19] MEDS ORDERED: methylPREDNISolone SOD SUCCI 125 MG/2 ML VIAL IM ONE (08:33)
--- NOTE | 2021-09-19 10:35 | ED ---
ENT HPI - General Chief complaint: ENT Stated complaint: Sore throat, ear pain, shoulder, knee & back pain Time Seen by Provider: 09/19/21 08:24 Source: patient, RN notes reviewed Mode of arrival: ambulatory Limitations: no limitations - History of Present Illness Initial comments: 46-year-old female presented emergency from chief complaint of sore throat. Patient states she's been dealing with upper respiratory symptoms last several days. Patient was seen and placed on oral antibiotics, switched recently. Patient states that she has sore throat and ear pain bodyaches. Shows states that she was swabbed outpatient which was negative. Patient denies taking any ghgb-sph-dlzzvnz cough and cold medications. - Related Data Home Medications Medication Instructions Recorded Confirmed amLODIPine [Norvasc] 10 mg PO DAILY 02/09/14 05/20/19 Cholecalciferol (Vitamin D3) 5,000 unit PO DAILY 10/08/17 05/20/19 [Vitamin D3] Dulaglutide [Trulicity] 0.75 mg SQ MO 10/13/17 05/20/19 atenoloL [Tenormin] 50 mg PO DAILY 08/26/18 05/20/19 Oxymorphone HCl [Opana ER] 40 mg PO Q12H 09/11/18 05/20/19 Albuterol Inhaler (Mhu) [Ventolin 1 - 2 puff INHALATION RT-Q6H PRN 03/02/19 05/20/19 Hfa Inhaler (Mhu)] Albuterol Nebulizer 1 dose INHALATION DIRECTED PRN 03/02/19 05/20/19 Biotin 1 tab PO DAILY 03/02/19 05/20/19 Multivit with Calcium,Iron,Min 1 each PO DAILY 03/02/19 05/20/19 [Women's Multivitamin] traZODone HCL 50 - 150 mg PO HS PRN 05/14/19 05/20/19 Previous Rx's Medication Instructions Recorded Acetaminophen Tab [Tylenol Tab] 1,000 mg PO Q6H PRN #30 tablet 05/20/19 Naproxen [EC-Naproxen] 500 mg PO BID #30 tablet. 05/20/19 Omeprazole [PriLOSEC] 40 mg PO DAILY #14 cap 05/20/19 Azithromycin [Zithromax] 500 mg PO DAILY 5 Days #5 tab 04/27/21 predniSONE 50 mg PO DAILY #5 tab 09/19/21 Allergies Allergy/AdvReac Type Severity Reaction Status Date / Time Latex, Natural Rubber Allergy Rash/Hives Verified 09/19/21 08:20 Penicillins Allergy Anaphylaxis Verified 09/19/21 08:20 venom-honey bee Allergy Anaphylaxis Verified 09/19/21 08:20 [bee venom (honey bee)] Review of Systems ROS Statement: Those systems with pertinent positive or pertinent negative responses have been documented in the HPI. ROS Other: All systems not noted in ROS Statement are negative. Past Medical History Past Medical History: Asthma, Chest Pain / Angina, Fibromyalgia, GERD/Reflux, Hypertension, Thyroid Disorder Additional Past Medical History / Comment(s): endometriosis,migraines, hay fever, palpitations, thyroid nodules, herniated disc, polycystic ovaries, hiatal hernia,"difficulty swallowing pills", Hx of esophageal dilation., [place] [place], [place]BS., prolapsed bladder, States elevated blood sugar after hx of steroid injection-denies diabetes History of Any Multi-Drug Resistant Organisms: None Reported Past Surgical History: Adenoidectomy, Bariatric Surgery, Section, Cholecystectomy, Heart Catheterization, Joint Replacement, Orthopedic Surgery, Tonsillectomy Additional Past Surgical History / Comment(s): left knee arthroscopy , left ACL, LT TKA then 2nd sx to repair, [place] ( [place] [facility] [place], lymph node removed right side of neck, laparoscopy, COLONOSCOPY/EGD, thyroid biopsy x3 Past Anesthesia/Blood Transfusion Reactions: Previous Problems w/ Anesthesia, Family History of Problems w/ Anesthesia, Motion Sickness Additional Past Anesthesia/Blood Transfusion Reaction / Comment(s): bad headache and diff breathing in recovery with lymph node surgery @ 20 yrs old. Past Psychological History: Anxiety, Depression, Panic Disorder Smoking Status: Current some day smoker Past Alcohol Use History: Occasional Past Drug Use History: Marijuana - Past Family History Mother Additional Family Medical History / Comment(s): back sx Father Family Medical History: Cancer, Myocardial Infarction ([place]), Renal Disease Additional Family Medical History / Comment(s): Leukemia and prostate cancer General Exam Limitations: no limitations General appearance: alert, in no apparent distress Head exam: Present: atraumatic, normocephalic, normal inspection Eye exam: Present: normal appearance, PERRL, EOMI. Absent: scleral icterus, conjunctival injection, periorbital swelling ENT exam: Present: normal exam, normal oropharynx, mucous membranes moist, TM's normal bilaterally Neck exam: Present: normal inspection, full ROM. Absent: tenderness, meningismus, lymphadenopathy Respiratory exam: Present: normal lung sounds bilaterally. Absent: respiratory distress, wheezes, rales, rhonchi, stridor Cardiovascular Exam: Present: regular rate, normal rhythm, normal heart sounds. Absent: systolic murmur, diastolic murmur, rubs, gallop, clicks GI/Abdominal exam: Present: soft, normal bowel sounds. Absent: distended, tenderness, guarding, rebound, rigid Course Vital Signs 09/19/21 08:17 Temperature 98.2 F Pulse Rate 88 Respiratory 14 Rate Blood Pressure 133/81 O2 Sat by Pulse 97 Oximetry Medical Decision Making - Medical Decision Making Patient has negative covid 19, negative influenza, negative strep, negative heterophile. Patient has a viral illness. Patient discharged in stable condition. Patient has arthritic discomfort. Patient discharged in stable condition return parameters were discussed. - Lab Data Lab Results 09/19/21 09/19/21 09/19/21 Range/Units 08:49 08:49 08:49 Coronavirus (PCR) (Not Detectd) Heterophile Antibody Negative (Negative) Influenza Type A RNA Not Detected (Not Detectd) Influenza Type B (PCR) Not Detected (Not Detectd) Group A Strep Rapid Negative (Negative) 09/19/21 Range/Units 08:49 Coronavirus (PCR) Not Detected (Not Detectd) Heterophile Antibody (Negative) Influenza Type A RNA (Not Detectd) Influenza Type B (PCR) (Not Detectd) Group A Strep Rapid (Negative) Disposition Clinical Impression: Viral URI, Arthritis Disposition: HOME SELF-CARE Condition: Stable Instructions (If sedation given, give patient instructions): Upper Respiratory Infection (ED) Additional Instructions: Please return to the Emergency Department if symptoms worsen or any other concerns. Prescriptions: predniSONE 50 mg PO DAILY #5 tab Is patient prescribed a controlled substance at d/c from ED?: No Referrals: Avani Winter MD [Primary Care Provider] - 1-2 days Time of Disposition: 10:34
[2021-09-19 10:48] VITALS: PULSE 72; RESP 20
== END 2021-09-19 10:48 | disposition home or self-care (01) ==
LOC: EC 08:13
DX: J06.9 Acute upper respiratory infection, unspecified (principal); M19.90 Unspecified osteoarthritis, unspecified site; Z20.822 Contact with and (suspected) exposure to COVID-19; I10 Essential (primary) hypertension; J45.909 Unspecified asthma, uncomplicated; K21.9 Gastro-esophageal reflux disease without esophagitis; M79.7 Fibromyalgia; E07.9 Disorder of thyroid, unspecified; F32.A Depression, unspecified; F41.9 Anxiety disorder, unspecified; F17.200 Nicotine dependence, unspecified, uncomplicated; F12.90 Cannabis use, unspecified, uncomplicated; Z79.51 Long term (current) use of inhaled steroids; Z79.899 Other long term (current) drug therapy
CPT/HCPCS: 36415; 86308; 87081; 87430; 87502; 87635; 99283; 96372; J2930